=== PATIENT | male | born 1975 | race Caucasian/White ===

== ENCOUNTER → 2019-02-19 11:41 | Outpatient (CLI) | payer BC, SELFPAY ==
--- NOTE | 2019-02-19 11:45 | DI.RAD.S_ITS ---
PROCEDURE: XR SHOULDER RT MIN 2V INDICATIONS: Right should pain, decreased ROM TECHNIQUE: 3 views of the shoulder were acquired. COMPARISON: None. FINDINGS: Bones: No fractures or dislocations. No suspicious bony lesions. Visualized ribs appear intact. Mild degenerative changes of the acromioclavicular joint are present. Soft tissues: A homogeneous calcification is overlying the posterior aspect of the humeral head along the greater tuberosity. IMPRESSION: 1. No acute osseous abnormality of the right shoulder. 2. Calcific tendinitis of the right shoulder. Dictated by: Mitchell Graham M.D. on 02/19/2019 at 11:46 Approved by: Mitchell Graham M.D. on 02/19/2019 at 11:46
== END ==
PROVIDERS: PCP Family Medicine; Visit Provider Nurse Practitioner
DX: M25.511 Pain in right shoulder (principal); M75.31 Calcific tendinitis of right shoulder
CPT/HCPCS: 73030

== ENCOUNTER 2019-02-20 21:50 | Emergency (ER) | payer BC, SELFPAY ==
[2019-02-20 22:11] VITALS: BP 143/79; PULSE 89; RESP 20; TEMP 37.3; O2SAT 99
--- NOTE | 2019-02-20 22:49 | ED.GENADULT ---
HPI - General Adult General Chief complaint: Extremity Injury, Upper Stated complaint: right shoulder/arm pain Time Seen by Provider: 02/20/19 22:22 Source: patient Mode of arrival: Ambulatory Limitations: no limitations History of Present Illness HPI narrative: Patient is a 44-year-old male who was recently diagnosed with calcific tendinitis in his right shoulder. Was started on Flexeril. He states that he has tried to follow up in states that his physical therapy appointment is scheduled for another several weeks. He states that he is ?going back down on the road? and returns this evening because he has continued pain in his shoulder. Related Data Previous Rx's Medication Instructions Recorded cyclobenzaprine 10 mg tablet 10 mg PO TID PRN #14 tab 02/19/19 prednisone 40 mg PO DAILY 4 Days #8 tab 02/20/19 Allergies Allergy/AdvReac Type Severity Reaction Status Date / Time No Known Allergies Allergy Uncoded 02/19/19 11:09 Review of Systems Constitutional Constitutional: Denies fever(s) Musculoskeletal Musculoskeletal: Denies tingling Comments: Right shoulder pain Integumentary/Breasts Skin/Breast: Denies rash Neurologic Neurologic: Denies tingling and Denies paresthesias Hematologic/Lymphatic Hematologic/Lymphatic: Denies easy bleeding and Denies easy bruising PFSH Medical History Tendonitis (Inactive) Family History Mother Age: 62 Brain tumor Social History Smoking Status: Never smoker Social History Smoking Status: Never smoker Exam Initial Vital Signs Initial Vital Signs: Vital Signs Temperature 99.1 F 02/20/19 22:11 Pulse Rate 89 02/20/19 22:11 Respiratory Rate 20 02/20/19 22:11 Blood Pressure 143/79 H 02/20/19 22:11 Pulse Oximetry 99 02/20/19 22:11 Const General: cooperative, healthy appearing and comfortable Resp Effort & Inspection: normal respiratory effort Cardio Pulses: radial pulses present on the right Skin Lesions: no lesions Rashes: no rashes Extrem Other: Tenderness to palpation laterally and anteriorly to the right shoulder. Does have full range of motion however has pain with forward flexion Psych Appearance: grossly normal and well kempt Course Orders Ordered: Discontinued Medications Prednisone (Deltasone) 40 mg PO NOW ONE Stop: 02/20/19 22:51 Last Admin: 02/20/19 23:01 Dose: 40 mg Documented by: MERCEDEZ Vital Signs Vital signs: Vital Signs - 8 hr 02/20/19 22:11 Temperature 99.1 F Pulse Rate 89 Respiratory Rate 20 Blood Pressure 143/79 H Pulse Oximetry 99 Medical Decision Making MDM Narrative Medical decision making narrative: No indication for repeat x-rays today. He is neurovascularly intact. Informed him that if he is not receiving any improvement with Flexeril should just stop taking this medication. Low suspicion this is a muscle spasm. Will send him home with a short course of steroids. He is going to continue to take the anti-inflammatories. He is going to continue to follow up with physical therapy. He was given return precautions. He expressed understanding and agreement with plan. Discharge Plan Departure Patient Disposition: Home Clinical Impression: Tendonitis Discharge Date/Time: 02/20/19 23:04 Instructions: DI for Tendinitis Activity Restrictions/Additional Instructions: You can stop the cyclobenzaprine/Flexeril. I do recommend you start taking a anti-inflammatories such as Motrin and/or Naprosyn on a daily basis. It is important that you follow-up with physical therapy. Contact your primary provider for follow-up. Return to the emergency department for any new or worsening symptoms Prescriptions: New prednisone 20 mg tablet 40 mg PO DAILY 4 Days Qty: 8 RF: 0 No Action cyclobenzaprine 10 mg tablet 10 mg PO TID PRN (Reason: muscle spasm) Qty: 14 RF: 0 Referrals: Tabby Guerrier DO [Primary Care Provider] -
[2019-02-20] MEDS: predniSONE 20 MG TABLET 40 MG PO (23:01)
== END 2019-02-20 23:04 | disposition home or self-care (01) ==
PROVIDERS: Emergency Provider Emergency Medicine; PCP Family Medicine
DX: M75.81 Other shoulder lesions, right shoulder (principal)
CPT/HCPCS: 99282; 99283

== ENCOUNTER → 2020-02-17 09:08 | Outpatient (CLI) | payer OTHER, MEDICAID, SELFPAY ==
[2020-02-17 09:39] LABS: Add Manual Diff / Slide Review NO; Basophils Absolute Auto 100 /uL (0-100); Eosinophils Absolute Auto 300 /uL (0-450); Eosinophils Percent Auto 5.7 % (2-4); Hematocrit 46.5 % (41-53); Hemoglobin 15.9 g/dL (13.5-17.5); Lymphocytes Absolute Auto 1400 /uL (1100-4500); Lymphocytes Percent Auto 24.2 % (25-40); Mean Corpuscular HGB Conc 34.2 % (30-36); Mean Corpuscular Hemoglobin 29.6 PG (26-34); Mean Corpuscular Volume 86.6 fL (80-100); Monocytes Absolute Auto 400 /uL (0-900); Monocytes Percent Auto 7.2 % (3-14); Neutrophils Absolute Auto 3500 /uL (1500-7000); Neutrophils Percent Auto 61.9 % (50-75); Platelet Count 199 X10^3/uL (150-400); Red Blood Cell Count 5.37 X10^6/uL (4.5-5.9); Red Cell Distribution Width 12.6 % (11.6-14.8); White Blood Cell Count 5.6 X10^3/uL (4.5-11.0)
[2020-02-17 10:04] LABS: BUN Creatinine Ratio 13.7 (6-22); Blood Urea Nitrogen 18 mg/dL (9-20); Calcium 9.5 mg/dL (8.4-10.2); Carbon Dioxide 32 mmol/L (22-32); Chloride 103 mmol/L (98-107); Cholesterol 211 mg/dL (140-199); Estimated Glomerular Filt Rate 59.4 mL/min (>60); Glucose 99 mg/dL (70-100); HDL Cholesterol 37 mg/dL (40-60); HEMOLYSIS < 15 (0-50); LDL Cholesterol Calculated 130 mg/dL (<100); Potassium 4.6 mmol/L (3.4-5.1); Sodium 138 mmol/L (137-145); Triglycerides 221 mg/dL (35-150)
== END ==
PROVIDERS: PCP Family Medicine; Referring Provider Family Medicine; Visit Provider Family Medicine
DX: Z00.00 Encounter for general adult medical examination without abnormal findings (principal); Z68.29 Body mass index [BMI] 29.0-29.9, adult
CPT/HCPCS: 36415; 80048; 80061; 85025

== ENCOUNTER → 2020-04-23 13:13 | Outpatient (CLI) | payer OTHER, MEDICAID, SELFPAY ==
--- NOTE | 2020-04-23 13:16 | DI.RAD.S_ITS ---
PROCEDURE: FL BARIUM SWALLOW W SPEECH INDICATIONS: Dysphagia, pharyngeal phase COMPARISON: None. TECHNIQUE: Examination was conducted in conjunction with speech pathology per standard protocol. In the lateral projection, filming was performed of the patient swallowing. AP projection filming may also be performed with patient swallowing. COMPARISON: FINDINGS: Function: The oral preparatory phase appears normal, with proper containment. The subsequent oral propulsive phase, pharyngeal phase, and esophageal phase of swallowing also appear normal with all proffered substances. No laryngotracheal penetration or aspiration. No pathologic vallecular pooling. Morphology: No cricopharyngeal bar is identified. No cervical esophageal webs. No Zenker's diverticulum. No strictures. IMPRESSION: Negative examination as above. Dictated by: Javier Dc M.D. on 04/23/2020 at 14:27 Approved by: Javier Dc M.D. on 04/23/2020 at 14:28
--- NOTE | 2020-04-24 15:13 | ST.SWALLOW ---
Visit Care Team Role Provider Type Chaim Florez DO Primary Care Provider Physician Specialty: Family Practice Address: [address] [place] [address], [id number] Email: Brayan Brown MD Attending Provider Physician Referring Provider Specialty: Ear, Nose, Throat Address: [address] [place] [address], [id number] Email: [email or web address] Modified Barium Swallow Study ZOO DIRECTOR Modified Barium Swallow Study Start: 04/23/20 17:40 Freq: Status: Active Protocol: Document 04/23/20 17:40 MARYCARMEN (Rec: 04/23/20 17:41 MARYCARMEN [id number]) Modified Barium Swallow Study Total Time Visit Start Time 13:30 Visit Stop Time 13:55 Total Visit Minutes [address] Brown Reason for Referral Pharyngeal Dysphagia Setting Setting Outpatient Care Patient Information Identification Type Name,ID Card Patient History The pt is a 45-yr-old male who complains of intermittent sticking sensation with solids over many years, since ~19 yrs old. The pt cannot identify trigger foods. Sometimes he is able to resolve it with added liquid wash or by turning his head in either direction, and other times he regurgitates to remove it. He denies concern of airway compromise and has no difficulties with liquids. He said he has never been able to swallow pills whole and thankfully has few pills he has needed to take. He opts for liquid medications or crushes or chews pills in order to swallow them. No injury, illness or trauma can be identified as etiology or otherwise contributing factors. The pt requested ENT evaluation to make sure there was nothing wrong. Dr. Brown performed laryngoscopy with findings of no evidence of morbid disease although mild erythema of the vocal cords is nonspecific, possible untreated reflux, etc. The pt was referred for MBS for further evaluation of swallow. Subjective Observations The pt arrived on time and provided case history supplemental to medical records. Note: Video recording not obtained. Observations made in real time and via still images. Patient Positioning Position View Lat-A/P Imaging Lateral View Textures Administered Trials Presented Thin Liquid via Spoon,Thin Liquid via Cup,Bingham Liquid via Spoon,Bingham Liquid via Cup,Honey Liquid via Spoon, Dysphagia Blenderized Textures ,Regular Textures Oral Phase Source: MBSIMP (TM) (C) Bolus Specific Scoring Grid Lip Closure No Impairment (WNL) Tongue Control During Bolus Hold No Impairment (WNL) Bolus Prep/Mastication No Impairment (WNL) Bolus Transport/Lingual Motion No Impairment (WNL) A/P Lingual Propulsion Delay Yes: With pill only. Pt unable to pass pill to pharynx. Oral Residue No Impairment (WNL) Nasal Regurgitation No Additional Oral Phase Observations Oral Peripheral Exam: Symmetrical features WNL of strength, coordination and ROM. Pt has natural dentition in excellent condition, one upper left molar missing. Outside of pt's inability to pass barium tablet from oral to pharyngeal cavities, which he anticipated he would not be able to do, oral swallow phase is WNL. Pharyngeal Phase Source: MBSIMP (TM) (C) Bolus Specific Scoring Grid Delayed Initiation of Pharyngeal Swallow No Soft Palate Elevation No Impairment (WNL) Tongue Base Strength/Range of Motion No Impairment (WNL) Residue Along the Tongue Base No Laryngeal Elevation No Impairment (WNL) Anterior Hyoid Movement No Impairment (WNL) Epiglottic Range of Motion No Impairment (WNL) Vallecular Residue No Laryngeal Vestibular Closure No Impairment (WNL) Pharyngeal Stripping Wave No Impairment (WNL) Posterior Pharyngeal Wall Residue No Upper Esophageal Sphincter Opening No Impairment (WNL) Residue in the Pyriform Sinuses No Esophageal Clearance Upright Position No Impairment (WNL) Pharyngoesophageal Backflow Observed No Additional Pharyngeal Phase Observations Pharyngeal swallow phase was observed to be WNL in this study. No abnormal pooling or residue was observed. The pt had no complaints of sticking sensation. The airway was well protected with no laryngeal penetration or tracheal aspiration. A/P View Textures Administered Trials Presented Bingham Liquid via Cup, Dysphagia Blenderized Textures ,Barium Tablet A/P View Observations Pharyngeal Contraction No Impairment (WNL) Esophageal Function No Impairment (WNL) Esophageal Clearance Upright Position No Impairment (WNL) Additional Observations As noted above, the pt was unable to swallow a 13 mm barium tablet and expelled it after several attempts of swallowing with thin liquid. Esophageal Observations Esophageal Function No abnormalities were observed during esophageal screening. Clinical Impressions Findings The pt presented with normal oral and pharyngeal swallow during this study in a quiet and structured environment. No obvious cause for his intermittent sticking sensation was found. Discussed findings with pt and suggested that behaviors such as being distracted or talking while eating are potential contributors. Strategies that the pt could try are to turn his head to one side (either right or left) or tucking his chin with swallow if symptoms recur to see if that assists in clearance. General aspiration risks and precautions were discussed. Patient Appropriate for Therapy No Recommendations Diet Liquids Order Thin Diet Order Regular Medication Recommendation Whole in Carrier,Crushed in Carrier Aspiration Precautions Recommended Precautions Upright at 90 Degrees,Small Bites/Sips Additional Precautions Right/Left head turn, chin tuck, effortful swallow if helpful episodically Treatment Plan Additional Recommended Referrals The pt stated he will be following up with ENT.
== END ==
PROVIDERS: PCP Family Medicine; Referring Provider Otolaryngology; Visit Provider Otolaryngology
DX: R13.13 Dysphagia, pharyngeal phase (principal)
CPT/HCPCS: 74230; 92611

== ENCOUNTER → 2020-08-23 09:08 | Outpatient (CLI) | payer OTHER, MEDICAID, SELFPAY ==
[2020-08-23 10:33] LABS: BUN Creatinine Ratio 13.3 (6-22); Blood Urea Nitrogen 17 mg/dL (9-20); Calcium 9.4 mg/dL (8.4-10.2); Carbon Dioxide 29 mmol/L (22-32); Chloride 105 mmol/L (98-107); Cholesterol 188 mg/dL (140-199); Estimated Glomerular Filt Rate > 60.0 mL/min (>60); Glucose 99 mg/dL (70-100); HDL Cholesterol 35 mg/dL (40-60); HEMOLYSIS < 15 (0-50); LDL Cholesterol Calculated 111 mg/dL (<100); Sodium 140 mmol/L (137-145); Triglycerides 210 mg/dL (35-150)
== END ==
PROVIDERS: PCP Family Medicine; Referring Provider Family Medicine; Visit Provider Family Medicine
DX: E78.2 Mixed hyperlipidemia (principal); N18.30 Chronic kidney disease, stage 3 unspecified; Z68.29 Body mass index [BMI] 29.0-29.9, adult
CPT/HCPCS: 36415; 80048; 80061

== ENCOUNTER 2021-03-02 21:59 | Emergency (ER) | payer OTHER, MEDICAID, SELFPAY ==
[2021-03-02 22:07] VITALS: BP 136/87; PULSE 87; RESP 14; TEMP 36.2; O2SAT 99; BMI 27.7
--- NOTE | 2021-03-02 22:11 | DI.RAD.S_ITS ---
PROCEDURE: XR CHEST 1V INDICATIONS: Chest pain TECHNIQUE: One view of the chest was acquired. COMPARISON: None. FINDINGS: Surgical changes and devices: None. Lungs and pleura: Lungs are clear. No pleural effusions or pneumothorax. Mediastinum: Mediastinal contours appear normal. Heart size is normal. Bones and chest wall: No suspicious bony lesions. Overlying soft tissues appear unremarkable. IMPRESSION: No acute cardiopulmonary process demonstrated radiographically. Dictated by: Nimesh Krishnamurthy M.D. on 03/02/2021 at 22:26 Approved by: Nimesh Krishnamurthy M.D. on 03/02/2021 at 22:26
[2021-03-02 22:32] LABS: Alanine Aminotransferase 28 IU/L (<50); Albumin 4.7 g/dL (3.5-5.0); Albumin Globulin Ratio 1.5 (1.0-2.8); Alkaline Phosphatase 55 U/L (38-126); Aspartate Aminotransferase 27 IU/L (17-59); Bilirubin Total 0.5 mg/dL (0.2-1.3); Blood Urea Nitrogen 18 mg/dL (9-20); Calcium 9.4 mg/dL (8.4-10.2); Carbon Dioxide 28 mmol/L (22-32); Chloride 103 mmol/L (98-107); Creatine Kinase 90 U/L (55-170); Estimated Glomerular Filt Rate > 60.0 mL/min (>60); Globulin 3.1 g/dL (1.7-4.1); Glucose 101 mg/dL (70-100); HEMOLYSIS 15 (0-50); Lipase 117 U/L (23-300); Potassium 3.5 mmol/L (3.4-5.1); Sodium 141 mmol/L (137-145); Total Protein 7.8 g/dL (6.3-8.2)
[2021-03-02 22:44] LABS: Troponin I < 0.012 ng/mL (0.01-0.034)
[2021-03-02 22:50] LABS: Add Manual Diff / Slide Review NO; Basophils Absolute Auto 0 /uL (0-100); Basophils Percent Auto 0.7 % (0-2); Eosinophils Absolute Auto 200 /uL (0-450); Eosinophils Percent Auto 3.8 % (2-4); Hematocrit 49.9 % (41-53); Hemoglobin 16.7 g/dL (13.5-17.5); Lymphocytes Absolute Auto 1600 /uL (1100-4500); Lymphocytes Percent Auto 24.8 % (25-40); Mean Corpuscular HGB Conc 33.5 % (30-36); Mean Corpuscular Hemoglobin 29.5 PG (26-34); Monocytes Absolute Auto 400 /uL (0-900); Neutrophils Absolute Auto 4000 /uL (1500-7000); Neutrophils Percent Auto 63.7 % (50-75); Platelet Count 219 X10^3/uL (150-400); Red Blood Cell Count 5.67 X10^6/uL (4.5-5.9); Red Cell Distribution Width 12.9 % (11.6-14.8); White Blood Cell Count 6.3 X10^3/uL (4.5-11.0)
[2021-03-02 22:52] VITALS: BP 136/78; PULSE 80; O2SAT 99
[2021-03-02 22:53] VITALS: BP 136/76; PULSE 83; RESP 16; O2SAT 99
--- NOTE | 2021-03-02 22:55 | ED.CHESTPAIN ---
HPI - Chest Pain General Chief Complaint: Chest Pain Stated Complaint: Chest pain-sharp, weird feeling Time Seen by Provider: 03/02/21 22:53 Source: patient Mode of arrival: Ambulatory Limitations: no limitations History of Present Illness HPI narrative: 46-year-old male nonsmoker with noncontributory medical history presents for evaluation of an odd feeling in his left chest that started tonight a few hours ago. He states that he was at rest and had eaten some seafood bit before his symptoms started which include some sharp pain in his left chest that radiated up to his shoulder a bit. He states this discomfort was made worse by palpation, deep breath in by moving his arm. He denies other symptoms such as dizziness, weakness or lightheadedness. He has had no nausea or vomiting. He denies any exertional component to these symptoms. He does state that he felt a bit flushed and tingly in his face. 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 In the big picture he is had some abnormal feelings over the past month and a half or so which seemed to start soon after going out on the road for his job. He admits to having a few days of heavy drinking in the beginning of January and soon thereafter developed some epigastric burning and frequent palpitations and feeling flushed for a few days in the aftermath. His symptoms largely calm down but he has had other episodes of feeling a bit ?weird? which he seems to think may be related to eating seafood. He denies any swelling was tongue or throat or difficulty in breathing just feeling flushed with palpitations. Related Data Home Medications Medication Instructions Recorded Confirmed No Known Home Medications 02/16/20 08/28/20 Allergies Allergy/AdvReac Type Severity Reaction Status Date / Time No Known Drug Allergies Allergy Verified 03/02/21 22:07 Review of Systems Review of Systems Narrative: GENERAL: See HPI HEENT: Denies sinus pain, ear pain, sore throat, difficulty swallowing, dizziness. RESPIRATORY: See HPI CARDIOVASCULAR:See HPI GASTROINTESTINAL: Denies nausea, vomiting, abdominal pain, diarrhea, constipation, melena. : Denies dysuria, frequency, incontinence, hematuria, urinary retention. MUSCULOSKELETAL: denies weakness, joint pain, or bony pain SKIN: Denies rash, skin lesions, or other NEUROLOGIC: Denies weakness, headache, numbness, change in speech, confusion, seizures, incoordination. PSYCHIATRIC: No concerning psychosocial issues. 12 point review of systems is negative except for those stated above Patient History Medical History BMI 29.0-29.9,adult CKD (chronic kidney disease) stage 3, GFR 30-59 ml/min Encounter for vasectomy Food sticks on swallowing Hyperlipidemia, mixed Physical exam, annual Tendonitis Surgical History Anesthesia H/O removal of cyst (~2012) Family History Mother Brain tumor Cancer Father Broken hip Grandfather Cancer Social History Smoking Status: Never smoker alcohol intake: former substance use type: does not use Smoking Status: Never smoker alcohol intake frequency: holidays/special occasions only Substance Use Type: does not use Exam Narrative Exam Narrative: GENERAL: [46] year old patient appears stated age. Well-developed patient, in mild distress. HEAD: Atraumatic. Normocephalic. EYES: Pupils equal round and reactive. Extraocular motions intact. No scleral icterus. No injection or drainage. ENT: Nose without bleeding, purulent drainage. Throat without erythema, tonsillar hypertrophy or exudate. Airway patent. NECK: Trachea midline. Non tender CARDIOVASCULAR: Regular rate and rhythm without murmurs, gallops, or rubs. Mild tenderness to palpation on left anterior chest is consistent with the discomfort that brought him in earlier RESPIRATORY: Clear to auscultation. Breath sounds equal bilaterally. No wheezes, rales, or rhonchi. GASTROINTESTINAL: Abdomen soft, non-tender, nondistended. EXTREMITIES: No edema or joint tenderness. BACK: Nontender without deformity or crepitance. No flank tenderness. NEURO: AOx3. SKIN: No rash or erythema of visible areas Initial Vital Signs Initial Vital Signs: Vital Signs Temperature 97.2 F L 03/02/21 22:07 Pulse Rate 87 03/02/21 22:07 Respiratory Rate 14 03/02/21 22:07 Blood Pressure 136/87 03/02/21 22:07 Pulse Oximetry 99 03/02/21 22:07 Scores PERC Score Age greater than or equal to 50 years: No Heart rate greater than or equal to 100 bpm: No Room Air O2 Sat less than 95%: No Unilateral leg swelling: No Recent trauma or surgery: No Hemoptysis: No Prior PE or DVT: No Hormone Use: No Total PERC Score: 0 Wells' Criteria for PE Clinical signs and symptoms of DVT: No PE is #1 Dx or equally likely: No Heart rate > 100: No Immobilization at least 3 days or surg in previous 4 weeks: No History of PE or DVT: No Hemoptysis: No Malignancy w/Treatment within 6 months or palliative: No Wells' PE Score total: 0 Course Orders Ordered: ED Orders 03/02/21 22:10 Complete Blood Count AUTO DIFF Stat Comprehensive Metabolic Panel Stat Lipase Stat Troponin & CK Cardiac Panel Stat 03/02/21 22:11 XR chest 1V Stat EKG-12 Lead Stat 03/03/21 01:17 Troponin I Stat Vital Signs Vital signs: Vital Signs - 8 hr 03/02/21 22:07 03/02/21 22:52 03/02/21 22:53 Temperature 97.2 F L Pulse Rate 87 80 83 Respiratory Rate 14 16 Blood Pressure 136/87 136/78 136/76 Pulse Oximetry 99 99 99 03/02/21 23:37 03/02/21 23:38 03/03/21 00:00 Temperature Pulse Rate 80 65 Respiratory Rate 12 Blood Pressure 142/67 H Pulse Oximetry 100 99 100 03/03/21 00:30 03/03/21 01:00 Temperature Pulse Rate 63 73 Respiratory Rate 14 15 Blood Pressure Pulse Oximetry 100 100 MDM - Chest Pain Lab Data Result diagrams: 03/02/21 22:10 03/02/21 22:10 Labs: Lab Results 03/02/21 03/02/21 03/03/21 Range/Units 22:10 22:10 01:17 WBC 6.3 (4.5-11.0) X10^3/uL RBC 5.67 (4.5-5.9) X10^6/uL Hgb 16.7 (13.5-17.5) g/dL Hct 49.9 (41-53) % MCV 88.0 (80-100) fL MCH 29.5 (26-34) PG MCHC 33.5 (30-36) % RDW 12.9 (11.6-14.8) % Plt Count 219 (150-400) X10^3/uL Neut % (Auto) 63.7 (50-75) % Lymph % (Auto) 24.8 L (25-40) % [place] % (Auto) 7.0 (3-14) % Eos % (Auto) 3.8 (2-4) % Baso % (Auto) 0.7 (0-2) % Neut # (Auto) 4000 (7500-4672) /uL Lymph # (Auto) 1600 (7657-5568) /uL [place] # (Auto) 400 (0-900) /uL Eos # (Auto) 200 (0-450) /uL Baso # (Auto) 0 (0-100) /uL Sodium 141 (137-145) mmol/L Potassium 3.5 (3.4-5.1) mmol/L Chloride 103 (98-107) mmol/L Carbon Dioxide 28 (22-32) mmol/L BUN 18 (9-20) mg/dL Creatinine 1.29 H (0.66-1.25) mg/dL Estimated GFR > 60.0 (>60) mL/min BUN/Creatinine Ratio 14.0 (6-22) Glucose 101 H (70-100) mg/dL Calcium 9.4 (8.4-10.2) mg/dL Total Bilirubin 0.5 (0.2-1.3) mg/dL AST 27 (17-59) IU/L ALT 28 (<50) IU/L Alkaline Phosphatase 55 (38-126) U/L Total Creatine Kinase 90 (55-170) U/L CK-MB (CK-2) TNP CK-MB (CK-2) Rel Index TNP Troponin I < 0.012 < 0.012 (0.01-0.034) ng/mL Total Protein 7.8 (6.3-8.2) g/dL Albumin 4.7 (3.5-5.0) g/dL Globulin 3.1 (1.7-4.1) g/dL Albumin/Globulin Ratio 1.5 (1.0-2.8) Lipase 117 (23-300) U/L Imaging Data Chest x-ray: Radiologist's Impression: [address] [address] XRay Report Signed Patient: Nick Farris MR#: [id number] : 1975 Acct:[id number] Age/Sex: 46 / M Date of Service: 03/02/21 Loc: ED Accession Number: [id number] ?? Procedure: XR chest 1V Ordering Provider: Vishal Walker D.O. PROCEDURE:? XR CHEST 1V ? INDICATIONS:? Chest pain ? TECHNIQUE:? One view of the chest was acquired.? ? COMPARISON:? None. ? FINDINGS:? ? Surgical changes and devices:? None.? ? Lungs and pleura:? Lungs are clear.? No pleural effusions or pneumothorax.? ? Mediastinum:? Mediastinal contours appear normal.? Heart size is normal.? ? Bones and chest wall:? No suspicious bony lesions.? Overlying soft tissues appear unremarkable.? ? IMPRESSION:? No acute cardiopulmonary process demonstrated radiographically. ? ? Dictated by: Nimesh Krishnamurthy M.D. on 03/02/2021 at 22:26 ? ? Approved by: Nimesh Krishnamurthy M.D. on 03/02/2021 at 22:26 ? MDM Narrative Medical decision making narrative: Patient with an atypical presentation of chest pain which is sharp and stabbing, reproducible with palpation deep breaths and motion. EKGs are nonischemic and troponins by 3 hours are unremarkable. There is no exertional component nor other red flag symptoms such as unexplained diaphoresis. Heart score is low and cardiac ischemia soft to be extremely unlikely. Pulmonary embolism considered given his extensive travel, however both Wells and PERC score are negative, no D-dimer indicated based on Agustin Adkins's PE Algorithm. Pneumonia considered, pneumothorax considered but both thought unlikely given lack of findings on x-ray. Given the temporal relationship to seafood there is some question about how this may relate but no indication or need of a specific intervention or therapy tonight. The episode he had in the beginning of January sounds concerning for holiday heart, we discussed this at length. Patient has an appointment with his PCP on Thursday, return precautions have been given and questions answered to his apparent satisfaction Discharge Plan Departure Patient Disposition: Home Clinical Impression: Atypical chest pain Instructions: DI for Atypical Chest Pain Activity Restrictions/Additional Instructions: *You have been diagnosed with [atypical chest pain. Your history, physical exam, labs and EKG are very reassuring. There is no evidence of heart attack, blood clot, or other diagnosis requiring a specific or immediate intervention *What to do: *Please continue to take your regular medications as directed. [ ] New medication prescriptions sent to your pharmacy: [ ] [ ] New medication written as a paper prescription [x ] No new medications given *Please follow up with your primary care provider in 2-3 days, call for an appointment. Let them know you were seen in the Emergency Department and that we ask that you be seen in follow up. We will electronically transmit a record of today's note if your PCP is in our system *If you do not have a primary care provider please contact the [facility] Resource line at [phone]. They will ask some questions about your medical history and help get you set up with a doctor in the community. *Return to Emergency Department if you should have any new, worsening or concerning symptoms, such as [fever greater than 101 F, shaking chills, worsening pain, persistent vomiting or other bothersome symptoms] Prescriptions: No Action No Known Home Medications RF: 0 Referrals: Chaim Florez DO [Primary Care Provider] -
[2021-03-02 23:37] VITALS: O2SAT 100
[2021-03-02 23:38] VITALS: BP 142/67; PULSE 80; O2SAT 99
[2021-03-03] VITALS: PULSE 65; RESP 12; O2SAT 100
[2021-03-03 00:30] VITALS: PULSE 63; RESP 14; O2SAT 100
[2021-03-03 01:00] VITALS: PULSE 73; RESP 15; O2SAT 100
[2021-03-03 01:47] LABS: Troponin I < 0.012 ng/mL (0.01-0.034)
== END 2021-03-03 02:00 | disposition home or self-care (01) ==
PROVIDERS: Emergency Provider Emergency Medicine; PCP Family Medicine
DX: R07.9 Chest pain, unspecified (principal)
CPT/HCPCS: 36415; 71045; 80053; 82550; 83690; 84484; 85025; 93005; 93010; 99284

== ENCOUNTER 2022-07-06 21:27 | Emergency (ER) | payer OTHER, MEDICAID, SELFPAY ==
[2022-07-06 23:42] VITALS: BP 149/95; PULSE 70; RESP 17; TEMP 36.6; O2SAT 98; BMI 29.9
--- NOTE | 2022-07-06 23:48 | DI.RAD.S_ITS ---
PROCEDURE: XR SHOULDER RT MIN 2V INDICATIONS: pain with movement for a week unknown injury TECHNIQUE: A total of 4 views of the shoulder were acquired. COMPARISON: [facility], CR, XR SHOULDER RT MIN 2V, 02/19/2019, 12:01. FINDINGS: Bones: No fractures or dislocations. No suspicious bony lesions. Visualized ribs appear intact. Soft tissues: No suspicious soft tissue calcifications. IMPRESSION: Source of pain is not seen. Dictated by: Don Story M.D. on 07/07/2022 at 0:17 Approved by: Don Story M.D. on 07/07/2022 at 0:17
--- NOTE | 2022-07-06 23:49 | DI.RAD.S_ITS ---
PROCEDURE: XR ELBOW RT MIN 3V INDICATIONS: pain with movement for a week unknown injury TECHNIQUE: 3 views of the elbow were acquired. COMPARISON: None. FINDINGS: Bones: No fractures or dislocations. No suspicious bony lesions. Soft tissues: No elbow joint effusion. No suspicious soft tissue calcifications. IMPRESSION: Source of pain is seen. Dictated by: Don Story M.D. on 07/07/2022 at 0:17 Approved by: Don Story M.D. on 07/07/2022 at 0:18
--- NOTE | 2022-07-07 03:00 | ED_ITS ---
HPI - Extremity Injury (Upper) General Chief Complaint: Extremity Injury, Upper Stated Complaint: right arm pain x7 days Time Seen by Provider: 07/07/22 02:49 Source: patient Mode of arrival: Ambulatory Limitations: no limitations History of Present Illness HPI narrative: 47-year-old male with complaint of right arm pain for the past week patient states he was at an event was caring a lot of awkward things and started having pain radiating down his arm from his shoulder to his elbow. He states it is worse when he rotates his head and extends it. Particularly when he rotates mode of the left.. Patient has occasionally had some sort of tingling sensation but not all the way down his arm. No numbness. He states pain is intermittent but persistent. 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 He was seen at walk-in clinic several days ago he has been taking ibuprofen 800 mg twice daily, prednisone for 3 days which he is completed and muscle relaxer which he states is a little bit helpful but still quite uncomfortable. Pain was increasing this evening so he presented for evaluation. He denies any daily medications. He denies any major surgeries. States no known drug allergies. Patient states no tobacco, occasional alcohol, no illicit. He has not appointment set up with Dr. Florez on this upcoming . Related Data Previous Rx's Medication Instructions Recorded baclofen 20 mg tablet 20 mg PO TID PRN muscle spasm 7 07/03/22 days #21 tabs gabapentin 300 mg capsule 300 mg PO TID #30 caps 07/07/22 tramadol 50 mg tablet 50 mg PO Q6H PRN pain #14 tabs 07/07/22 Allergies Allergy/AdvReac Type Severity Reaction Status Date / Time No Known Drug Allergies Allergy Verified 07/03/22 11:35 Review of Systems Review of Systems ROS Unobtainable: All systems reviewed & are unremarkable except as noted in HPI and below Patient History Medical History BMI 29.0-29.9,adult CKD (chronic kidney disease) stage 3, GFR 30-59 ml/min Encounter for vasectomy Food sticks on swallowing Hyperlipidemia, mixed Physical exam, annual Tendonitis Surgical History Anesthesia H/O removal of cyst (~2013) Family History Mother Brain tumor Cancer Father Broken hip Grandfather Cancer Social History Smoking Status: Never smoker alcohol intake: former substance use type: does not use Smoking Status: Never smoker alcohol intake frequency: holidays/special occasions only Substance Use Type: does not use Exam Narrative Exam Narrative: GEN: Patient is in mild distress. Patient is active active and playful on exam. Normal attentiveness, good eye contact. INFANTS: Patient is consolable has good intake or suck on examination, good muscle tone, flat anterior fontanelle which is not sunken, closed, bulging. HEENT: Head is atraumatic, conjunctivae and lids are normal, extraocular movements are intact, PERRL. ears are normal the tympanic membranes intact without erythema or bulging. Able to visualize both TMs. Nares are clear, pharynx is normal, moist mucous membranes. NEC K: Supple, no masses, positive Spurling's. No cervical vertebral tenderness. RESP: No respiratory distress, breath sounds are normal with equal air movement bilaterally. CVS: Heart is regular rate and rhythm, heart sounds normal with no murmur, strong peripheral pulses, normal capillary refill ABG/GI: Abdomen is nontender, soft, normal bowel sounds, no distention, no organomegaly EXT: Nontender, director marketing communications are equal bilaterally. 5/5 muscle strength upper extremities. 2/4 DTRs bilateral upper extremities. Sensation is touch bilaterally upper extremities. Patient has full range of motion. NEURO: Normal motor and sensory, cranial nerves are intact, neuro is at baseline SKIN: No lesions, no petechiae, normal skin that is warm and dry, normal color and without rash. Initial Vital Signs Initial Vital Signs: Vital Signs Temperature 98 F 07/06/22 23:42 Pulse Rate 70 07/06/22 23:42 Respiratory Rate 17 07/06/22 23:42 Blood Pressure 149/95 H 07/06/22 23:42 Pulse Oximetry 98 07/06/22 23:42 Oxygen Delivery Method 07/06/22 23:42 Course Orders Ordered: Discontinued Medications Ketorolac Tromethamine (Ketorolac 30 Mg/Ml Vial) 30 mg IM NOW ONE Stop: 07/07/22 04:08 Last Admin: 07/07/22 04:21 Dose: 30 mg Documented By: TANIA Vital Signs Vital signs: Vital Signs - 8 hr 07/07/22 04:21 Pulse Rate 88 Respiratory Rate 16 Pulse Oximetry 98 Oxygen Delivery Method Room Air MDM - Extremity Injury (Upper) MDM Narrative Medical decision making narrative: This is a 47-year-old male who presents with complaint of right upper extremity pain radiating down towards his elbow. Occasionally tingling. Worse with movement of his not can positive Spurling's. Patient appears to have cervical radiculopathy he is no red flag symptoms. He is follow-up actually set up this upcoming . He has been on 3 days of prednisone with minimal improvement. Plan to start gabapentin, continue ibuprofen will add a short course of narcotic pain medication for breakthrough pain and discussed return precautions. Discussed with patient he is already started some PT type exercises he is found online which I think is appropriate. He may need to follow up with PT or have further imaging or workup. Discharge Plan Departure Patient Disposition: Home Clinical Impression: Cervical radiculopathy Instructions: DI for Cervical Radiculopathy Activity Restrictions/Additional Instructions: Follow-up with your physician, Dr. Koehler on at your scheduled appointment . Your symptoms are consistent with a cervical radiculopathy they make recommend PT, they may get additional imaging or further workup. You can continue ibuprofen up to 800 mg every 8 hours as needed for pain. You can take Tylenol up to a 1000 mg every 6 hours with this medication. You may take gabapentin 1 tablet every 8 hours as needed. This medication can be titrated or increased talk to Dr. Florez You may take tramadol 1-2 tablets every 6 hours as needed. This medication can make you sleepy do not drive, perform hazardous activities or make any major decisions while taking it. This medication will make you constipated please take a stool softener once to twice daily until stools are soft and regular. Prescription sent to [facility] in [place] Please return for rapidly worsening symptoms, difficulty with tucking machine operator, weakness in your arm, loss of sensation, inability to lift or move her arm or other new or concerning changes. Prescriptions: New gabapentin 300 mg capsule 300 mg PO TID Qty: 30 0RF tramadol 50 mg tablet 50 mg PO Q6H PRN (Reason: pain) Qty: 14 0RF No Action baclofen 20 mg tablet 20 mg PO TID PRN (Reason: muscle spasm) 7 Days Qty: 21 0RF Referrals: Scott Florez DO [Primary Care Provider] - Stand Alone Forms: Patient Portal/API
[2022-07-07 04:21] VITALS: PULSE 88; RESP 16; O2SAT 98
[2022-07-07] MEDS: KETOROLAC 30 MG/ML VIAL IM (04:21)
== END 2022-07-07 04:22 | disposition home or self-care (01) ==
PROVIDERS: Emergency Provider Emergency Medicine; PCP Family Medicine
DX: M54.12 Radiculopathy, cervical region (principal)
CPT/HCPCS: 73030; 73080; 96372; 99283; J1885

== ENCOUNTER 2022-12-11 07:30 | Outpatient (RCR) | payer OTHER, MEDICAID, SELFPAY ==
--- NOTE | 2022-09-02 09:48 | PT.OIE ---
Current Diagnoses Torticollis (09/02/22) Radiculopathy, cervical region (09/02/22) Segmental and somatic dysfunction of head region (09/02/22) Segmental and somatic dysfunction of thoracic region (09/02/22) Abnormal posture (09/02/22) Weakness (09/02/22) Past Medical History (Last Updated 07/16/22 @ 11:33 by Scott Florez DO) BMI 29.0-29.9,adult Cervical somatic dysfunction CKD (chronic kidney disease) stage 3, GFR 30-59 ml/min Cranial somatic dysfunction Encounter for vasectomy Finger numbness Food sticks on swallowing Hyperlipidemia, mixed Neck stiffness Physical exam, annual Tendonitis Thoracic region somatic dysfunction Past Surgical History (Last Reviewed 07/07/22 @ 04:14 by Jolynn Zuniga DO) Anesthesia H/O removal of cyst (~2012) Visit Care Team Role Provider Type Scott Florez DO Attending Provider Physician Family Provider Primary Care Provider Referring Provider Specialty: [facility] Address: [address] [place] [address], [facility] Email: Physical Therapy Initial Evaluation PT-OP-A Visit Information Start: 08/25/22 10:48 Freq: Status: Active Protocol: Document 09/02/22 08:18 [facility] (Rec: 09/02/22 09:04 [facility] [id number]) Out-Patient Physical Therapy Visit Information Visit Information Visit Type Initial Evaluation Visit Start Time 08:19 Visit Stop Time 09:01 Total Visit Minutes 42 Visit Number 1 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 He woke up that thursday and his R arm hurt and he took ibupfrofen and it got worse wher he could barely drive home. It went all the way down his arm into his hand. He has seen Dr. Florez and massage therapy. Massage therapy helped. The weekend before had been bowling and felt it some there. 9 weeks prior he had just started to workout including push ups etc which was new to him. sitting seems to trigger it the most w/ resting arm. He had some exercises from Dr. Florez but doesn't notice if the exercises make any change. It is overall better. He does get muscle spasms a lot where his forehead and B eyelids and R triceps. He leaves in 3 weeks for a tour for 3 months. Gabapentin does help. He started weaning himself off gabepentin which he was doing fine until partway in vacation . 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 Its mostly resting and laying down. He has stopped workouts since. hx of cyst removal along R scap, a couple years ago had calcium build up of R arm and that was painful and had to wait for it to be reabsorbed (around 2018) Treatment Goals Patient/Caregiver Goals be able to drive and do all activities and rest w/o inc pain/tingling PT-OP-C Subjective Start: 08/25/22 10:48 Freq: Status: Active Protocol: Document 09/02/22 08:18 [facility] (Rec: 09/02/22 09:04 [facility] [id number]) Patient Questionnaires Quick Dash- Upper Extremity Quick Dash UE Score 15 OP-PT Pain Assessment Location R arm Pain Location Details R UT region & post lat shoulder arnd arm & forearm Intensity 3 Scale Used Numeric (0 - 10) Description Tingling Frequency Frequent Radiating Location tip of 2nd digit numb (3-4 used to be but better) Other Pain Aggravating Factors driving, resting Pain Alleviating Factors Medication Other Pain Alleviating Factors activity PT-OP-F Manual Assessment Start: 08/25/22 10:48 Freq: Status: Active Protocol: Document 09/02/22 08:18 [facility] (Rec: 09/02/22 09:04 [facility] [id number]) Manual Assessments Soft Tissue Assessment Soft Tissue Mobility Assessment R med scap border, R UT, LS, rhombooids, biceps, pec, scalenes, SCM Joint Mobility Assessment Joint Mobility Assessment R 1st rib elevated PT-OP-J Posture/Palpation/Skin Start: 08/25/22 10:48 Freq: Status: Active Protocol: Document 09/02/22 08:18 [facility] (Rec: 09/02/22 09:04 [facility] [id number]) Posture Evaluation Torey Postural Classification System Elbow Flexion Test 2 Comments Posture Comments R scap more fwd angled, R shoulder elevated PT-OP-K Range of Motion Start: 08/25/22 10:48 Freq: Status: Active Protocol: Document 09/02/22 08:18 [facility] (Rec: 09/02/22 09:04 [facility] [id number]) Cervical Spine Range of Motion Cervical Spine Active Degrees Flexion 54 Extension 55 Rotation Left 72 Rotation Right 68 Lateral Flexion Left 45 Lateral Flexion Right 26 Comments WNL BuE ROM -mild pain w/flex; pain into arm w/R SB PT-OP-L Special Tests Start: 08/25/22 10:48 Freq: Status: Active Protocol: Document 09/02/22 08:18 [facility] (Rec: 09/02/22 09:04 [facility] [id number]) Special Tests Cervical Spine Special Tests Traction Test Results relief Vertebral Artery Test Results neg Spurling's Test Test Results neg Neural Special Tests- Upper Body Median Nerve Tension Test Results R positive Radial Nerve Tension Test Results R positive Ulnar Nerve Tension Test Results neg PT-OP-M Strength Start: 08/25/22 10:48 Freq: Status: Active Protocol: Document 09/02/22 08:18 [facility] (Rec: 09/02/22 09:04 [facility] [id number]) Shoulder Strength Shoulder Manual Muscle Testing Right Flexion 5 Normal Extension 5 Normal Abduction (C5) 5 Normal External Rotation 5 Normal Internal Rotation 5 Normal Left Flexion 5 Normal Extension 5 Normal Abduction (C5) 5 Normal External Rotation 5 Normal Internal Rotation 5 Normal Elbow/Forearm Strength Elbow and Forearm Manual Muscle Testing Right Flexion (C6) 4+ Good+ Extension (C7) 3+ Fair+ Pronation 5 Normal Supination 5 Normal Left Flexion (C6) 5 Normal Extension (C7) 5 Normal Pronation 5 Normal Supination 5 Normal Wrist Strength Wrist Manual Muscle Testing Right Flexion (C7) 5 Normal Extension (C6) 5 Normal Left Flexion (C7) 5 Normal Extension (C6) 5 Normal Hand Distillery Worker General/Pinch Strength Hand Strength Right Distillery Worker General (lbs) 120 Comments 132, 118, 110 Left Distillery Worker General (lbs) 128 Comments 142, 123, 120 PT-OP-Q Treatments Start: 08/25/22 10:48 Freq: Status: Active Protocol: Document 09/02/22 08:18 [facility] (Rec: 09/02/22 09:04 [facility] [id number]) Self-Care/Home Management Treatment Education Other Education edu on exercise handout to startx4 min PT-OP-T Assessment and Plan Start: 08/25/22 10:48 Freq: Status: Active Protocol: Document 09/02/22 08:18 [facility] (Rec: 09/02/22 09:04 [facility] [id number]) Physical Therapy Assessment Rehab Potential Rehabilitation Potential Good Evaluation Complexity Number of Personal Factors/Comorbidities 3 or More Number of Body Systems Impaired 4 or More Clinical Presentation at Evaluation Evolving Impairments Impairments Activity Tolerance,Functional Activities,Functional Mobility ,Pain,Posture,ROM,Soft Tissue Mobility,Strength Other Concerns Barriers to Rehabilitation pt has limited visits w/PT in a year and will be gone for 3 months in 3 weeks d/t work. 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 LTG Duration 11/25/22 Assessment Summary Assessment Pt presents w/RUE weakness and pain/tingling that has been ongoing w/some imrpovement in the past 2 months. 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 His presentation si consistant w/ C7 parastesia and median & radial n tension w/elevation of 1st rib and impaired posture which is likely creating his nerve irritation. Pt would bneefit from skilled PT to address these issues and improve his function including ability to drive and rest arm at his side w/o inc pain/tingling. Physical Therapy Plan Frequency and Duration Frequency of Treatment 2x/wk 4wk; 1xwk/8wk Duration of treatment (weeks) 12 Plan of Care Start Date 09/02/22 Plan of Care End Date 11/25/22 Therapeutic Interventions Therapeutic Interventions Coordination Training,Home Exercise Program,Joint Mobilizations,Manual Therapy, Neuromuscular Re-education, Patient/Caregiver Education, Self-Care/Home Management,Soft Tissue Mobilization,Taping, Therapeutic Activities, Therapeutic Exercises Modalities Cold Pack/Ice Massage,Electric Stimulation,Hot Packs, Infrared Therapy,Iontophoresis ,Traction- Mechanical, Ultrasound Next Visit Focus/Plan Next Note Type Treatment Note Next Visit Plan review exercises; add wall posture & triceps strength along w/median and radial n glides, axial elongation; Upper tspine mobs and ribs 1-3 caudal and ap/PA mobs; sternal mobs, AC mobs, soft tissue along median & radial n path
--- NOTE | 2022-09-02 09:48 | PT.OPPOC ---
Physical, Occupational & Speech Therapy At [facility] Current Diagnoses Torticollis (09/02/22) Radiculopathy, cervical region (09/02/22) Segmental and somatic dysfunction of head region (09/02/22) Segmental and somatic dysfunction of thoracic region (09/02/22) Abnormal posture (09/02/22) Weakness (09/02/22) Visit Care Team Role Provider Type Scott Florez DO Attending Provider Physician Family Provider Primary Care Provider Referring Provider Specialty: Family Practice Address: [address] [place] [address], [facility] Email: Plan Of Care PT-OP-T Assessment and Plan Start: 08/25/22 10:48 Freq: Status: Active Protocol: Document 09/02/22 08:18 [facility] (Rec: 09/02/22 09:04 [facility] [id number]) Physical Therapy Assessment Rehab Potential Rehabilitation Potential Good Evaluation Complexity Number of Personal Factors/Comorbidities 3 or More Number of Body Systems Impaired 4 or More Clinical Presentation at Evaluation Evolving Impairments Impairments Activity Tolerance,Functional Activities,Functional Mobility ,Pain,Posture,ROM,Soft Tissue Mobility,Strength Other Concerns Barriers to Rehabilitation pt has limited visits w/PT in a year and will be gone for 3 months in 3 weeks d/t work. 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 LTG Duration 11/25/22 Assessment Summary Assessment Pt presents w/RUE weakness and pain/tingling that has been ongoing w/some imrpovement in the past 2 months. 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 His presentation si consistant w/ C7 parastesia and median & radial n tension w/elevation of 1st rib and impaired posture which is likely creating his nerve irritation. Pt would bneefit from skilled PT to address these issues and improve his function including ability to drive and rest arm at his side w/o inc pain/tingling. Physical Therapy Plan Frequency and Duration Frequency of Treatment 2x/wk 4wk; 1xwk/8wk Duration of treatment (weeks) 12 Plan of Care Start Date 09/02/22 Plan of Care End Date 11/25/22 Therapeutic Interventions Therapeutic Interventions Coordination Training,Home Exercise Program,Joint Mobilizations,Manual Therapy, Neuromuscular Re-education, Patient/Caregiver Education, Self-Care/Home Management,Soft Tissue Mobilization,Taping, Therapeutic Activities, Therapeutic Exercises Modalities Cold Pack/Ice Massage,Electric Stimulation,Hot Packs, Infrared Therapy,Iontophoresis ,Traction- Mechanical, Ultrasound Next Visit Focus/Plan Next Note Type Treatment Note Next Visit Plan review exercises; add wall posture & triceps strength along w/median and radial n glides, axial elongation; Upper tspine mobs and ribs 1-3 caudal and ap/PA mobs; sternal mobs, AC mobs, soft tissue along median & radial n path Plan of Care Dates Plan of Care Start Date 09/02/22 Plan of Care End Date 11/25/22 Electronically Signed by: Gala Brown, PT 09/02/22 0948 If you are in agreement with this Plan of Care, please return a signed and dated copy. I have reviewed this Plan of Care and certify that the skilled therapy services above are required to meet the patient?s needs. Physician Signature Date Printed Name and Credentials Clinical Instructor Signature Printed Name and Credentials
--- NOTE | 2022-09-04 08:15 | PT.OTN ---
Current Diagnoses Torticollis (09/04/22) Radiculopathy, cervical region (09/04/22) Segmental and somatic dysfunction of head region (09/04/22) Segmental and somatic dysfunction of thoracic region (09/04/22) Abnormal posture (09/04/22) Weakness (09/04/22) Physical Therapy Treatment Note PT-OP-A Visit Information Start: 08/25/22 10:48 Freq: Status: Active Protocol: Document 09/04/22 07:24 [facility] (Rec: 09/04/22 08:15 [facility] [id number]) Out-Patient Physical Therapy Visit Information Visit Information Visit Type Treatment Note Visit Start Time 07:30 Visit Stop Time 08:07 Total Visit Minutes 37 Visit Number 2 Number of DRUM STOCK CLERK Visits 0 PT-OP-B Current Condition Start: 08/25/22 10:48 Freq: Status: Active Protocol: Document 09/02/22 08:18 [facility] (Rec: 09/02/22 09:04 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 He woke up that thursday and his R arm hurt and he took ibupfrofen and it got worse wher he could barely drive home. It went all the way down his arm into his hand. He has seen Dr. Florez and massage therapy. Massage therapy helped. The weekend before had been bowling and felt it some there. 9 weeks prior he had just started to workout including push ups etc which was new to him. sitting seems to trigger it the most w/ resting arm. He had some exercises from Dr. Florez but doesn't notice if the exercises make any change. It is overall better. He does get muscle spasms a lot where his forehead and B eyelids and R triceps. He leaves in 3 weeks for a tour for 3 months. Gabapentin does help. He started weaning himself off gabepentin which he was doing fine until partway in vacation . 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 Its mostly resting and laying down. He has stopped workouts since. hx of cyst removal along R scap, a couple years ago had calcium build up of R arm and that was painful and had to wait for it to be reabsorbed (around 2018) Treatment Goals Patient/Caregiver Goals be able to drive and do all activities and rest w/o inc pain/tingling PT-OP-C Subjective Start: 08/25/22 10:48 Freq: Status: Active Protocol: Document 09/04/22 07:24 [facility] (Rec: 09/04/22 08:15 [facility] [id number]) OP-PT Subjective Patient Comments Patient Comments pt reports he mowed a 1/2 acre yesterday so is a little stiff PT-OP-F Manual Assessment Start: 08/25/22 10:48 Freq: Status: Active Protocol: Document 09/02/22 08:18 [facility] (Rec: 09/02/22 09:04 [facility] [id number]) Manual Assessments Soft Tissue Assessment Soft Tissue Mobility Assessment R med scap border, R UT, LS, rhombooids, biceps, pec, scalenes, SCM Joint Mobility Assessment Joint Mobility Assessment R 1st rib elevated PT-OP-J Posture/Palpation/Skin Start: 08/25/22 10:48 Freq: Status: Active Protocol: Document 09/02/22 08:18 [facility] (Rec: 09/02/22 09:04 [facility] [id number]) Posture Evaluation Torey Postural Classification System Elbow Flexion Test 2 Comments Posture Comments R scap more fwd angled, R shoulder elevated PT-OP-K Range of Motion Start: 08/25/22 10:48 Freq: Status: Active Protocol: Document 09/02/22 08:18 [facility] (Rec: 09/02/22 09:04 [facility] [id number]) Cervical Spine Range of Motion Cervical Spine Active Degrees Flexion 54 Extension 55 Rotation Left 72 Rotation Right 68 Lateral Flexion Left 45 Lateral Flexion Right 26 Comments WNL BuE ROM -mild pain w/flex; pain into arm w/R SB PT-OP-L Special Tests Start: 08/25/22 10:48 Freq: Status: Active Protocol: Document 09/02/22 08:18 [facility] (Rec: 09/02/22 09:04 [facility] [id number]) Special Tests Cervical Spine Special Tests Traction Test Results relief Vertebral Artery Test Results neg Spurling's Test Test Results neg Neural Special Tests- Upper Body Median Nerve Tension Test Results R positive Radial Nerve Tension Test Results R positive Ulnar Nerve Tension Test Results neg PT-OP-M Strength Start: 08/25/22 10:48 Freq: Status: Active Protocol: Document 09/02/22 08:18 [facility] (Rec: 09/02/22 09:04 [facility] [id number]) Shoulder Strength Shoulder Manual Muscle Testing Right Flexion 5 Normal Extension 5 Normal Abduction (C5) 5 Normal External Rotation 5 Normal Internal Rotation 5 Normal Left Flexion 5 Normal Extension 5 Normal Abduction (C5) 5 Normal External Rotation 5 Normal Internal Rotation 5 Normal Elbow/Forearm Strength Elbow and Forearm Manual Muscle Testing Right Flexion (C6) 4+ Good+ Extension (C7) 3+ Fair+ Pronation 5 Normal Supination 5 Normal Left Flexion (C6) 5 Normal Extension (C7) 5 Normal Pronation 5 Normal Supination 5 Normal Wrist Strength Wrist Manual Muscle Testing Right Flexion (C7) 5 Normal Extension (C6) 5 Normal Left Flexion (C7) 5 Normal Extension (C6) 5 Normal Hand Agricultural Technician/Pinch Strength Hand Strength Right Agricultural Technician (lbs) 120 Comments 132, 118, 110 Left Agricultural Technician (lbs) 128 Comments 142, 123, 120 PT-OP-Q Treatments Start: 08/25/22 10:48 Freq: Status: Active Protocol: Document 09/04/22 07:24 [facility] (Rec: 09/04/22 08:15 [facility] [id number]) Therapeutic Exercises Standing Exercises axial elongation Side bilateral Equipment Used orange tband Reps/Minutes 3 sec x10 ext Standing Exercise Name tricep ext Side bilateral Equipment Used [place] band Reps/Minutes 15 Comments cues for scap position wall posture Standing Exercise Name wall roll up Side bilateral Reps/Minutes 10x n glides Standing Exercise Name 1. radial 2. median Side right Reps/Minutes 8 ea Manual Therapy Treatment Soft Tissue Mobilization med n path Body Location R along cervical spine, scalenes, pec Mobilization Type Rolling,Sustained Pressure Intensity/Depth Moderate Body Position Supine Comments w/medin n glide Joint Mobilizations sternum Comments AP R FM thoracic Comments PA 1-3 FM transverse L 1-3 FM PT-OP-T Assessment and Plan Start: 08/25/22 10:48 Freq: Status: Active Protocol: Document 09/04/22 07:24 [facility] (Rec: 09/04/22 08:15 [facility] [id number]) Physical Therapy Assessment Goals activities Prison Goal (LTG) Pt will be able to drive w/o pain LTG Duration 711 strength Short Term Goal (STG) Pt will be indep w/HEp STG Duration 10/25 Prison Goal (LTG) Pt will have full triceps strength and R data solutions architect strength that is greater than L as R is his dominant hand in order to allow pt to carry and do all things required of his job w/o inc pain LTG Duration 11/25/22 pain Short Term Goal (STG) Pt will be able to lift and carry as needed w/o inc pain later STG Duration 10/16 Senior Java Web Application Developer Goal (LTG) Pt will be able to rest arm w/ o inc pain. LTG Duration 11/25/22 Assessment Summary Assessment Pt hadimpoved R rot cervically and R median n glide after manual treatment w/gettign into further abd before symptoms. He did well with exercises and had no difficulty w/them or c/o pain Physical Therapy Plan Frequency and Duration Frequency of Treatment 2x/wk 4wk; 1xwk/8wk Duration of treatment (weeks) 12 Plan of Care Start Date 09/02/22 Plan of Care End Date 11/25/22 Next Visit Focus/Plan Next Note Type Treatment Note Next Visit Plan short visits d/t insurance restrictions review exercises(wall posture & triceps strength along w/ median and radial n glides, axial elongation); Upper tspine mobs and ribs 1-3 caudal and ap/PA mobs; sternal mobs, AC mobs, soft tissue along median & radial n path
--- NOTE | 2022-09-08 17:46 | PT.OTN ---
Current Diagnoses Torticollis (09/08/22) Radiculopathy, cervical region (09/08/22) Segmental and somatic dysfunction of head region (09/08/22) Segmental and somatic dysfunction of thoracic region (09/08/22) Abnormal posture (09/08/22) Weakness (09/08/22) Physical Therapy Treatment Note PT-OP-A Visit Information Start: 08/25/22 10:48 Freq: Status: Active Protocol: Document 09/08/22 16:06 [facility] (Rec: 09/08/22 16:51 [facility] [id number]) Out-Patient Physical Therapy Visit Information Visit Information Visit Type Treatment Note Visit Start Time 16:07 Visit Stop Time 16:44 Total Visit Minutes 37 Visit Number 3 Number of MANAGER TREASURY Visits 0 PT-OP-B Current Condition Start: 08/25/22 10:48 Freq: Status: Active Protocol: Document 09/02/22 08:18 [facility] (Rec: 09/02/22 09:04 [facility] [id number]) Current Condition History of Current Condition Onset Date 2 months ago Current Complaints R arm pain History of Current Condition 2 months ago, 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 He woke up that thursday and his R arm hurt and he took ibupfrofen and it got worse wher he could barely drive home. It went all the way down his arm into his hand. He has seen Dr. Florez and massage therapy. Massage therapy helped. The weekend before had been bowling and felt it some there. 9 weeks prior he had just started to workout including push ups etc which was new to him. sitting seems to trigger it the most w/ resting arm. He had some exercises from Dr. Florez but doesn't notice if the exercises make any change. It is overall better. He does get muscle spasms a lot where his forehead and B eyelids and R triceps. He leaves in 3 weeks for a tour for 3 months. Gabapentin does help. He started weaning himself off gabepentin which he was doing fine until partway in vacation . 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 Its mostly resting and laying down. He has stopped workouts since. hx of cyst removal along R scap, a couple years ago had calcium build up of R arm and that was painful and had to wait for it to be reabsorbed (around 2018) Treatment Goals Patient/Caregiver Goals be able to drive and do all activities and rest w/o inc pain/tingling PT-OP-C Subjective Start: 08/25/22 10:48 Freq: Status: Active Protocol: Document 09/08/22 16:06 [facility] (Rec: 09/08/22 16:51 [facility] [id number]) OP-PT Subjective Patient Comments Patient Comments Pt reports going to an art show this weekend and did ok but did less carrying. Reports felt looser after last session PT-OP-F Manual Assessment Start: 08/25/22 10:48 Freq: Status: Active Protocol: Document 09/02/22 08:18 [facility] (Rec: 09/02/22 09:04 [facility] [id number]) Manual Assessments Soft Tissue Assessment Soft Tissue Mobility Assessment R med scap border, R UT, LS, rhombooids, biceps, pec, scalenes, SCM Joint Mobility Assessment Joint Mobility Assessment R 1st rib elevated PT-OP-J Posture/Palpation/Skin Start: 08/25/22 10:48 Freq: Status: Active Protocol: Document 09/02/22 08:18 [facility] (Rec: 09/02/22 09:04 [facility] [id number]) Posture Evaluation Torey Postural Classification System Elbow Flexion Test 2 Comments Posture Comments R scap more fwd angled, R shoulder elevated PT-OP-K Range of Motion Start: 08/25/22 10:48 Freq: Status: Active Protocol: Document 09/02/22 08:18 [facility] (Rec: 09/02/22 09:04 [facility] [id number]) Cervical Spine Range of Motion Cervical Spine Active Degrees Flexion 54 Extension 55 Rotation Left 72 Rotation Right 68 Lateral Flexion Left 45 Lateral Flexion Right 26 Comments WNL BuE ROM -mild pain w/flex; pain into arm w/R SB PT-OP-L Special Tests Start: 08/25/22 10:48 Freq: Status: Active Protocol: Document 09/02/22 08:18 [facility] (Rec: 09/02/22 09:04 [facility] [id number]) Special Tests Cervical Spine Special Tests Traction Test Results relief Vertebral Artery Test Results neg Spurling's Test Test Results neg Neural Special Tests- Upper Body Median Nerve Tension Test Results R positive Radial Nerve Tension Test Results R positive Ulnar Nerve Tension Test Results neg PT-OP-M Strength Start: 08/25/22 10:48 Freq: Status: Active Protocol: Document 09/02/22 08:18 [facility] (Rec: 09/02/22 09:04 [facility] [id number]) Shoulder Strength Shoulder Manual Muscle Testing Right Flexion 5 Normal Extension 5 Normal Abduction (C5) 5 Normal External Rotation 5 Normal Internal Rotation 5 Normal Left Flexion 5 Normal Extension 5 Normal Abduction (C5) 5 Normal External Rotation 5 Normal Internal Rotation 5 Normal Elbow/Forearm Strength Elbow and Forearm Manual Muscle Testing Right Flexion (C6) 4+ Good+ Extension (C7) 3+ Fair+ Pronation 5 Normal Supination 5 Normal Left Flexion (C6) 5 Normal Extension (C7) 5 Normal Pronation 5 Normal Supination 5 Normal Wrist Strength Wrist Manual Muscle Testing Right Flexion (C7) 5 Normal Extension (C6) 5 Normal Left Flexion (C7) 5 Normal Extension (C6) 5 Normal Hand Energy Engineer/Pinch Strength Hand Strength Right Energy Engineer (lbs) 120 Comments 132, 118, 110 Left Energy Engineer (lbs) 128 Comments 142, 123, 120 PT-OP-Q Treatments Start: 08/25/22 10:48 Freq: Status: Active Protocol: Document 09/08/22 16:06 [facility] (Rec: 09/08/22 16:51 [facility] [id number]) Therapeutic Exercises Standing Exercises axial elongation Side bilateral Equipment Used orange tband Reps/Minutes 3 sec x6 ext Standing Exercise Name tricep ext Side bilateral Equipment Used [place] band Reps/Minutes 15 Comments cues for scap position wall posture Standing Exercise Name wall roll up w/mod pivot prone Side bilateral Reps/Minutes 10x n glides Standing Exercise Name 1. radial 2. median Side right Reps/Minutes 5 ea Manual Therapy Treatment Soft Tissue Mobilization med n path Body Location R along entire path to hand Mobilization Type Rolling,Sustained Pressure Intensity/Depth Moderate Body Position Supine Comments w/medin n glide Joint Mobilizations ribs Joint R 1st caudal FM AC Joint R clavicle ant thoracic Comments PA 2-3 FM transverse L 2-3 FM PT-OP-T Assessment and Plan Start: 08/25/22 10:48 Freq: Status: Active Protocol: Document 09/08/22 16:06 [facility] (Rec: 09/08/22 16:51 [facility] [id number]) Physical Therapy Assessment Goals activities [place] Goal (LTG) Pt will be able to drive w/o pain LTG Duration 11/25 strength Short Term Goal (STG) Pt will be indep w/HEp STG Duration 10/25 Pipe Roller Goal (LTG) Pt will have full triceps strength and R generator switchboard operator strength that is greater than L as R is his dominant hand in order to allow pt to carry and do all things required of his job w/o inc pain LTG Duration 11/25/22 pain Short Term Goal (STG) Pt will be able to lift and carry as needed w/o inc pain later STG Duration 10/16 Pipe Roller Goal (LTG) Pt will be able to rest arm w/ o inc pain. LTG Duration 11/25/22 Assessment Summary Assessment Pt had improve med n glide beofre feeling tension from about 20 deg abd to about 100deg abd after manual. He reports general feeling much looser after therapy. He did wellw ith exercises but min cues still needed Physical Therapy Plan Next Visit Focus/Plan Next Note Type Treatment Note Next Visit Plan short visits d/t insurance restrictions quickreview exercises(wall posture & triceps strength along w/median and radial n glides, axial elongation); add open book, doorway pec stretch, other triceps strength (easy to do on road); Upper tspine mobs and ribs mobs, soft tissue along median & radial n path-focus pec
--- NOTE | 2022-09-12 08:15 | PT.OTN ---
Current Diagnoses Torticollis (09/12/22) Radiculopathy, cervical region (09/12/22) Segmental and somatic dysfunction of head region (09/12/22) Segmental and somatic dysfunction of thoracic region (09/12/22) Abnormal posture (09/12/22) Weakness (09/12/22) Physical Therapy Treatment Note PT-OP-A Visit Information Start: 08/25/22 10:48 Freq: Status: Active Protocol: Document 09/12/22 07:38 SP (Rec: 09/12/22 08:21 SP [id number]) Out-Patient Physical Therapy Visit Information Visit Information Visit Type Treatment Note Visit Note short visits d/t insurance restrictions Visit Start Time 07:38 Visit Stop Time 08:15 Total Visit Minutes 37 Visit Number 4 Number of INSURANCE POLICY CLERK Visits 1 PT-OP-B Current Condition Start: 08/25/22 10:48 Freq: Status: Active Protocol: Document 09/02/22 08:18 [facility] (Rec: 09/02/22 09:04 [facility] [id number]) Current Condition History of Current Condition Onset Date 2 months ago Current Complaints R arm pain History of Current Condition 2 months ago, 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 He woke up that thursday and his R arm hurt and he took ibupfrofen and it got worse wher he could barely drive home. It went all the way down his arm into his hand. He has seen Dr. Florez and massage therapy. Massage therapy helped. The weekend before had been bowling and felt it some there. 9 weeks prior he had just started to workout including push ups etc which was new to him. sitting seems to trigger it the most w/ resting arm. He had some exercises from Dr. Florez but doesn't notice if the exercises make any change. It is overall better. He does get muscle spasms a lot where his forehead and B eyelids and R triceps. He leaves in 3 weeks for a tour for 3 months. Gabapentin does help. He started weaning himself off gabepentin which he was doing fine until partway in vacation . 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 Its mostly resting and laying down. He has stopped workouts since. hx of cyst removal along R scap, a couple years ago had calcium build up of R arm and that was painful and had to wait for it to be reabsorbed (around 2018) Treatment Goals Patient/Caregiver Goals be able to drive and do all activities and rest w/o inc pain/tingling PT-OP-C Subjective Start: 08/25/22 10:48 Freq: Status: Active Protocol: Document 09/12/22 07:38 SP (Rec: 09/12/22 08:21 SP [id number]) OP-PT Subjective Patient Comments Patient Comments Pt reports see improvement of can feel L 2nd distal digit more, numbness not constant and tricep ext not as shaky. PT-OP-F Manual Assessment Start: 08/25/22 10:48 Freq: Status: Active Protocol: Document 09/02/22 08:18 [facility] (Rec: 09/02/22 09:04 [facility] [id number]) Manual Assessments Soft Tissue Assessment Soft Tissue Mobility Assessment R med scap border, R UT, LS, rhombooids, biceps, pec, scalenes, SCM Joint Mobility Assessment Joint Mobility Assessment R 1st rib elevated PT-OP-J Posture/Palpation/Skin Start: 08/25/22 10:48 Freq: Status: Active Protocol: Document 09/02/22 08:18 [facility] (Rec: 09/02/22 09:04 [facility] [id number]) Posture Evaluation Torey Postural Classification System Elbow Flexion Test 2 Comments Posture Comments R scap more fwd angled, R shoulder elevated PT-OP-K Range of Motion Start: 08/25/22 10:48 Freq: Status: Active Protocol: Document 09/02/22 08:18 [facility] (Rec: 09/02/22 09:04 [facility] [id number]) Cervical Spine Range of Motion Cervical Spine Active Degrees Flexion 54 Extension 55 Rotation Left 72 Rotation Right 68 Lateral Flexion Left 45 Lateral Flexion Right 26 Comments WNL BuE ROM -mild pain w/flex; pain into arm w/R SB PT-OP-L Special Tests Start: 08/25/22 10:48 Freq: Status: Active Protocol: Document 09/02/22 08:18 [facility] (Rec: 09/02/22 09:04 [facility] [id number]) Special Tests Cervical Spine Special Tests Traction Test Results relief Vertebral Artery Test Results neg Spurling's Test Test Results neg Neural Special Tests- Upper Body Median Nerve Tension Test Results R positive Radial Nerve Tension Test Results R positive Ulnar Nerve Tension Test Results neg PT-OP-M Strength Start: 08/25/22 10:48 Freq: Status: Active Protocol: Document 09/02/22 08:18 [facility] (Rec: 09/02/22 09:04 [facility] [id number]) Shoulder Strength Shoulder Manual Muscle Testing Right Flexion 5 Normal Extension 5 Normal Abduction (C5) 5 Normal External Rotation 5 Normal Internal Rotation 5 Normal Left Flexion 5 Normal Extension 5 Normal Abduction (C5) 5 Normal External Rotation 5 Normal Internal Rotation 5 Normal Elbow/Forearm Strength Elbow and Forearm Manual Muscle Testing Right Flexion (C6) 4+ Good+ Extension (C7) 3+ Fair+ Pronation 5 Normal Supination 5 Normal Left Flexion (C6) 5 Normal Extension (C7) 5 Normal Pronation 5 Normal Supination 5 Normal Wrist Strength Wrist Manual Muscle Testing Right Flexion (C7) 5 Normal Extension (C6) 5 Normal Left Flexion (C7) 5 Normal Extension (C6) 5 Normal Hand Insurance Sales Agent/Pinch Strength Hand Strength Right Insurance Sales Agent (lbs) 120 Comments 132, 118, 110 Left Insurance Sales Agent (lbs) 128 Comments 142, 123, 120 PT-OP-Q Treatments Start: 08/25/22 10:48 Freq: Status: Active Protocol: Document 09/12/22 07:38 SP (Rec: 09/12/22 08:21 SP [id number]) Therapeutic Exercises Sidelying Exercises open book Sidelying Exercise Name added to HEP Side bilateral Resistance AROM Reps/Minutes x8 reps Comments first few tight lateral arm but good fluid mvt with reps Sitting Exercises stretch Sitting Exercise Name 1. scalene 2. UT 3. LS Standing Exercises pec doorway stretch Standing Exercise Name added to HEP Side bilateral Reps/Minutes 30 hold various angles Comments cued head neutral walkinto doorway- good resp axial elongation Side bilateral Equipment Used orange tband Reps/Minutes 3 sec x6 Comments cued elevated elongation, head nod yes neutral, retract ext Standing Exercise Name tricep ext Side bilateral Equipment Used pamunkey band> #4 Blue in clinic ( #6 Corea sample latex free) Reps/Minutes 2x10 Comments cues for scap position and ab fac to wall posture Standing Exercise Name wall roll up w/mod pivot prone Side bilateral Reps/Minutes 3-5 sec hold, x10 Comments cued humeral ER allow scap retract/depress n glides Standing Exercise Name 1. radial 2. median Side right Reps/Minutes 5 ea Other Exercises triangle/reverse triangle, thread needle Other Exercise Name shown for options on road Side bilateral Reps/Minutes 5 reps each 3 SH Comments good feedback response Manual Therapy Treatment Soft Tissue Mobilization med n path Body Location R along entire path to hand Mobilization Type Rolling,Sustained Pressure Intensity/Depth Moderate Body Position Supine Comments w/median n glide Joint Mobilizations ribs Joint R 1st caudal Comments w/ FM FF AC Joint R clavicle distal Direction AP Grade II Comments w/ breath FM sternum Joint w/rib 3-4 Comments AP R FM breath and FF/scaption / PNF (manual) and ed self application PT-OP-T Assessment and Plan Start: 08/25/22 10:48 Freq: Status: Active Protocol: Document 09/12/22 07:38 SP (Rec: 09/12/22 08:21 SP [id number]) Physical Therapy Assessment Goals activities Powder And Primer Canning Leader Goal (LTG) Pt will be able to drive w/o pain LTG Duration 11/25 strength Short Term Goal (STG) Pt will be indep w/HEp STG Duration 10/25 Usp Goal (LTG) Pt will have full triceps strength and R shipping and receiving associate strength that is greater than L as R is his dominant hand in order to allow pt to carry and do all things required of his job w/o inc pain LTG Duration 11/25/22 pain Short Term Goal (STG) Pt will be able to lift and carry as needed w/o inc pain later STG Duration 10/16 Usp Goal (LTG) Pt will be able to rest arm w/ o inc pain. LTG Duration 11/25/22 Assessment Summary Assessment Pt good feedback response to manual, application how carryover self sustained pressure with RUE FM and breath. Good feedback mobility post manual during added open book and standing triangle/ reverse triangle to allow on road and at [place]. Physical Therapy Plan Frequency and Duration Frequency of Treatment 2x/wk 4wk; 1xwk/8wk Duration of treatment (weeks) 12 Plan of Care Start Date 09/02/22 Plan of Care End Date 11/25/22 Therapeutic Interventions Therapeutic Interventions Coordination Training,Home Exercise Program,Joint Mobilizations,Manual Therapy, Neuromuscular Re-education, Patient/Caregiver Education, Self-Care/Home Management,Soft Tissue Mobilization,Taping, Therapeutic Activities, Therapeutic Exercises Modalities Cold Pack/Ice Massage,Electric Stimulation,Hot Packs, Infrared Therapy,Iontophoresis ,Traction- Mechanical, Ultrasound Next Visit Focus/Plan Next Note Type Treatment Note Next Visit Plan short visits d/t insurance restrictions quickreview exercises(wall posture & triceps strength along w/median and radial n glides, axial elongation); add open book, doorway pec stretch, other triceps strength (easy to do on road); Upper tspine mobs and ribs mobs, soft tissue along median & radial n path-focus pec
--- NOTE | 2022-09-17 14:17 | PT.OTN ---
Current Diagnoses Torticollis (09/17/22) Radiculopathy, cervical region (09/17/22) Segmental and somatic dysfunction of head region (09/17/22) Segmental and somatic dysfunction of thoracic region (09/17/22) Abnormal posture (09/17/22) Weakness (09/17/22) Physical Therapy Treatment Note PT-OP-A Visit Information Start: 08/25/22 10:48 Freq: Status: Active Protocol: Document 09/17/22 13:34 [facility] (Rec: 09/17/22 14:16 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 (Rec: 09/02/22 09:04 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 He woke up that thursday and his R arm hurt and he took ibupfrofen and it got worse wher he could barely drive home. It went all the way down his arm into his hand. He has seen Dr. Florez and massage therapy. Massage therapy helped. The weekend before had been bowling and felt it some there. 9 weeks prior he had just started to workout including push ups etc which was new to him. sitting seems to trigger it the most w/ resting arm. He had some exercises from Dr. Florez but doesn't notice if the exercises make any change. It is overall better. He does get muscle spasms a lot where his forehead and B eyelids and R triceps. He leaves in 3 weeks for a tour for 3 months. Gabapentin does help. He started weaning himself off gabepentin which he was doing fine until partway in vacation . 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 Its mostly resting and laying down. He has stopped workouts since. hx of cyst removal along R scap, a couple years ago had calcium build up of R arm and that was painful and had to wait for it to be reabsorbed (around 2018) Treatment Goals Patient/Caregiver Goals be able to drive and do all activities and rest w/o inc pain/tingling PT-OP-C Subjective Start: 08/25/22 10:48 Freq: Status: Active Protocol: Document 09/17/22 13:34 [facility] (Rec: 09/17/22 14:16 [facility] [id number]) OP-PT Subjective Patient Comments Patient Comments Pt has had some points where R pointer finger is less numb but it does come back. Triceps is stronger but does occ get fascilitations to [place], No gabapentin for a week PT-OP-F Manual Assessment Start: 08/25/22 10:48 Freq: Status: Active Protocol: Document 09/02/22 08:18 [facility] (Rec: 09/02/22 09:04 [facility] [id number]) Manual Assessments Soft Tissue Assessment Soft Tissue Mobility Assessment R med scap border, R UT, LS, rhombooids, biceps, pec, scalenes, SCM Joint Mobility Assessment Joint Mobility Assessment R 1st rib elevated PT-OP-J Posture/Palpation/Skin Start: 08/25/22 10:48 Freq: Status: Active Protocol: Document 09/02/22 08:18 [facility] (Rec: 09/02/22 09:04 [facility] [id number]) Posture Evaluation Torey Postural Classification System Elbow Flexion Test 2 Comments Posture Comments R scap more fwd angled, R shoulder elevated PT-OP-K Range of Motion Start: 08/25/22 10:48 Freq: Status: Active Protocol: Document 09/02/22 08:18 [facility] (Rec: 09/02/22 09:04 [facility] [id number]) Cervical Spine Range of Motion Cervical Spine Active Degrees Flexion 54 Extension 55 Rotation Left 72 Rotation Right 68 Lateral Flexion Left 45 Lateral Flexion Right 26 Comments WNL BuE ROM -mild pain w/flex; pain into arm w/R SB PT-OP-L Special Tests Start: 08/25/22 10:48 Freq: Status: Active Protocol: Document 09/02/22 08:18 [facility] (Rec: 09/02/22 09:04 [facility] [id number]) Special Tests Cervical Spine Special Tests Traction Test Results relief Vertebral Artery Test Results neg Spurling's Test Test Results neg Neural Special Tests- Upper Body Median Nerve Tension Test Results R positive Radial Nerve Tension Test Results R positive Ulnar Nerve Tension Test Results neg PT-OP-M Strength Start: 08/25/22 10:48 Freq: Status: Active Protocol: Document 09/02/22 08:18 [facility] (Rec: 09/02/22 09:04 [facility] [id number]) Shoulder Strength Shoulder Manual Muscle Testing Right Flexion 5 Normal Extension 5 Normal Abduction (C5) 5 Normal External Rotation 5 Normal Internal Rotation 5 Normal Left Flexion 5 Normal Extension 5 Normal Abduction (C5) 5 Normal External Rotation 5 Normal Internal Rotation 5 Normal Elbow/Forearm Strength Elbow and Forearm Manual Muscle Testing Right Flexion (C6) 4+ Good+ Extension (C7) 3+ Fair+ Pronation 5 Normal Supination 5 Normal Left Flexion (C6) 5 Normal Extension (C7) 5 Normal Pronation 5 Normal Supination 5 Normal Wrist Strength Wrist Manual Muscle Testing Right Flexion (C7) 5 Normal Extension (C6) 5 Normal Left Flexion (C7) 5 Normal Extension (C6) 5 Normal Hand Launch Engineer/Pinch Strength Hand Strength Right Launch Engineer (lbs) 120 Comments 132, 118, 110 Left Launch Engineer (lbs) 128 Comments 142, 123, 120 PT-OP-Q Treatments Start: 08/25/22 10:48 Freq: Status: Active Protocol: Document 09/17/22 13:34 [facility] (Rec: 09/17/22 14:16 [facility] [id number]) Therapeutic Exercises Sidelying Exercises open book Sidelying Exercise Name added to HEP Side bilateral Resistance AROM Reps/Minutes 10 Sitting Exercises stretch Sitting Exercise Name 1. scalene 2. UT 3. LS Side right Reps/Minutes 30 sec ea Standing Exercises pec doorway stretch Standing Exercise Name added to HEP Side right Reps/Minutes review of various angles Other Exercises triangle/reverse triangle, thread needle Side bilateral Reps/Minutes 1 min review Comments good feedback response Manual Therapy Treatment Soft Tissue Mobilization med n path Body Location R along entire path to hand Mobilization Type Rolling,Sustained Pressure Intensity/Depth Moderate Body Position Supine Comments w/median n glide Joint Mobilizations GH Joint R inf FM AC Joint R clavicle ant FM s/l and seated PT-OP-T Assessment and Plan Start: 08/25/22 10:48 Freq: Status: Active Protocol: Document 09/17/22 13:34 [facility] (Rec: 09/17/22 14:16 [facility] [id number]) Physical Therapy Assessment Goals activities Special Events Director Goal (LTG) Pt will be able to drive w/o pain 5/3-mild pain a week and a half ago LTG Duration 11/25 strength Short Term Goal (STG) Pt will be indep w/HEp STG Duration achieved advancinga s sneeded Skilled Nursing Goal (LTG) Pt will have full triceps strength and R die cleaner strength that is greater than L as R is his dominant hand in order to allow pt to carry and do all things required of his job w/o inc pain LTG Duration 11/25/22 pain Short Term Goal (STG) Pt will be able to lift and carry as needed w/o inc pain later 09/17-has done small lifting but has not had to carry long distances STG Duration 10/16 Skilled Nursing Goal (LTG) Pt will be able to rest arm w/ o inc pain. 5/ mild w/driving LTG Duration 12/10/22 Assessment Summary Assessment Pt did well with new exercises given to him. Some cues w/ seated neck stretches and open book needed only. Overall pt making excellent progress but will cont to require PT to work on RUE symptoms. Physical Therapy Plan Frequency and Duration Frequency of Treatment 1x/Week Duration of treatment (weeks) 12 Plan of Care Start Date 09/17/22 Plan of Care End Date 12/10/22 Therapeutic Interventions Therapeutic Interventions Coordination Training,Home Exercise Program,Joint Mobilizations,Manual Therapy, Neuromuscular Re-education, Patient/Caregiver Education, Self-Care/Home Management,Soft Tissue Mobilization,Taping, Therapeutic Activities, Therapeutic Exercises Modalities Cold Pack/Ice Massage,Electric Stimulation,Hot Packs, Infrared Therapy,Iontophoresis ,Traction- Mechanical, Ultrasound Next Visit Focus/Plan Next Note Type Treatment Note Next Visit Plan short visits d/t insurance restrictions quickreview exercises(wall posture & triceps strength along w/median and radial n glides, axial elongation); add open book, doorway pec stretch, other triceps strength (easy to do on road); Upper tspine mobs and ribs mobs, soft tissue along median & radial n path-focus pec
--- NOTE | 2022-09-17 14:17 | PT.OPPOC ---
Physical, Occupational & Speech Therapy At [facility] Current Diagnoses Torticollis (09/17/22) Radiculopathy, cervical region (09/17/22) Segmental and somatic dysfunction of head region (09/17/22) Segmental and somatic dysfunction of thoracic region (09/17/22) Abnormal posture (09/17/22) Weakness (09/17/22) Visit Care Team Role Provider Type Scott Flroez DO Attending Provider Physician Family Provider Primary Care Provider Referring Provider Specialty: Family Practice Address: [address] [place] [address], [facility] Email: Plan Of Care PT-OP-T Assessment and Plan Start: 08/25/22 10:48 Freq: Status: Active Protocol: Document 09/17/22 13:34 [facility] (Rec: 09/17/22 14:16 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 5/3 mild w/driving LTG Duration 12/10/22 Assessment Summary Assessment Pt did well with new exercises given to him. Some cues w/ seated neck stretches and open book needed only. Overall pt making excellent progress but will cont to require PT to work on RUE symptoms. Physical Therapy Plan Frequency and Duration Frequency of Treatment 1x/Week Duration of treatment (weeks) 12 Plan of Care Start Date 09/17/22 Plan of Care End Date 12/10/22 Therapeutic Interventions Therapeutic Interventions Coordination Training,Home Exercise Program,Joint Mobilizations,Manual Therapy, Neuromuscular Re-education, Patient/Caregiver Education, Self-Care/Home Management,Soft Tissue Mobilization,Taping, Therapeutic Activities, Therapeutic Exercises Modalities Cold Pack/Ice Massage,Electric Stimulation,Hot Packs, Infrared Therapy,Iontophoresis ,Traction- Mechanical, Ultrasound Next Visit Focus/Plan Next Note Type Treatment Note Next Visit Plan short visits d/t insurance restrictions quickreview exercises(wall posture & triceps strength along w/median and radial n glides, axial elongation); add open book, doorway pec stretch, other triceps strength (easy to do on road); Upper tspine mobs and ribs mobs, soft tissue along median & radial n path-focus pec Plan of Care Dates Plan of Care Start Date 09/17/22 Plan of Care End Date 12/10/22 Electronically Signed by: Gala Brown, PT 09/17/22 2225 If you are in agreement with this Plan of Care, please return a signed and dated copy. I have reviewed this Plan of Care and certify that the skilled therapy services above are required to meet the patient?s needs. Physician Signature Date Printed Name and Credentials Clinical Instructor Signature Printed Name and Credentials
--- NOTE | 2022-09-19 08:08 | PT.OTN ---
Current Diagnoses Torticollis (09/19/22) Radiculopathy, cervical region (09/19/22) Segmental and somatic dysfunction of head region (09/19/22) Segmental and somatic dysfunction of thoracic region (09/19/22) Abnormal posture (09/19/22) Weakness (09/19/22) Physical Therapy Treatment Note PT-OP-A Visit Information Start: 08/25/22 10:48 Freq: Status: Active Protocol: Document 09/19/22 07:31 SP (Rec: 09/19/22 08:21 SP [id number]) Out-Patient Physical Therapy Visit Information Visit Information Visit Type Treatment Note Visit Note short visits d/t insurance restrictions, 2 units Visit Start Time 07:31 Visit Stop Time 08:08 Total Visit Minutes 37 Visit Number 6 Number of PEER TUTOR 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 He woke up that thursday and his R arm hurt and he took ibupfrofen and it got worse wher he could barely drive home. It went all the way down his arm into his hand. He has seen Dr. Florez and massage therapy. Massage therapy helped. The weekend before had been bowling and felt it some there. 9 weeks prior he had just started to workout including push ups etc which was new to him. sitting seems to trigger it the most w/ resting arm. He had some exercises from Dr. Florez but doesn't notice if the exercises make any change. It is overall better. He does get muscle spasms a lot where his forehead and B eyelids and R triceps. He leaves in 3 weeks for a tour for 3 months. Gabapentin does help. He started weaning himself off gabepentin which he was doing fine until partway in vacation . 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 Its mostly resting and laying down. He has stopped workouts since. hx of cyst removal along R scap, a couple years ago had calcium build up of R arm and that was painful and had to wait for it to be reabsorbed (around 2018) Treatment Goals Patient/Caregiver Goals be able to drive and do all activities and rest w/o inc pain/tingling PT-OP-C Subjective Start: 08/25/22 10:48 Freq: Status: Active Protocol: Document 09/19/22 07:31 SP (Rec: 09/19/22 08:21 SP [id number]) OP-PT Subjective Patient Comments Patient Comments Pt reports still getting numbness into R distal 2nd MCP . PT-OP-F Manual Assessment Start: 08/25/22 10:48 Freq: Status: Active Protocol: Document 09/02/22 08:18 [facility] (Rec: 09/02/22 09:04 [facility] [id number]) Manual Assessments Soft Tissue Assessment Soft Tissue Mobility Assessment R med scap border, R UT, LS, rhombooids, biceps, pec, scalenes, SCM Joint Mobility Assessment Joint Mobility Assessment R 1st rib elevated PT-OP-J Posture/Palpation/Skin Start: 08/25/22 10:48 Freq: Status: Active Protocol: Document 09/02/22 08:18 [facility] (Rec: 09/02/22 09:04 [facility] [id number]) Posture Evaluation Torey Postural Classification System Elbow Flexion Test 2 Comments Posture Comments R scap more fwd angled, R shoulder elevated PT-OP-K Range of Motion Start: 08/25/22 10:48 Freq: Status: Active Protocol: Document 09/02/22 08:18 [facility] (Rec: 09/02/22 09:04 [facility] [id number]) Cervical Spine Range of Motion Cervical Spine Active Degrees Flexion 54 Extension 55 Rotation Left 72 Rotation Right 68 Lateral Flexion Left 45 Lateral Flexion Right 26 Comments WNL BuE ROM -mild pain w/flex; pain into arm w/R SB PT-OP-L Special Tests Start: 08/25/22 10:48 Freq: Status: Active Protocol: Document 09/02/22 08:18 [facility] (Rec: 09/02/22 09:04 [facility] [id number]) Special Tests Cervical Spine Special Tests Traction Test Results relief Vertebral Artery Test Results neg Spurling's Test Test Results neg Neural Special Tests- Upper Body Median Nerve Tension Test Results R positive Radial Nerve Tension Test Results R positive Ulnar Nerve Tension Test Results neg PT-OP-M Strength Start: 08/25/22 10:48 Freq: Status: Active Protocol: Document 09/02/22 08:18 [facility] (Rec: 09/02/22 09:04 [facility] [id number]) Shoulder Strength Shoulder Manual Muscle Testing Right Flexion 5 Normal Extension 5 Normal Abduction (C5) 5 Normal External Rotation 5 Normal Internal Rotation 5 Normal Left Flexion 5 Normal Extension 5 Normal Abduction (C5) 5 Normal External Rotation 5 Normal Internal Rotation 5 Normal Elbow/Forearm Strength Elbow and Forearm Manual Muscle Testing Right Flexion (C6) 4+ Good+ Extension (C7) 3+ Fair+ Pronation 5 Normal Supination 5 Normal Left Flexion (C6) 5 Normal Extension (C7) 5 Normal Pronation 5 Normal Supination 5 Normal Wrist Strength Wrist Manual Muscle Testing Right Flexion (C7) 5 Normal Extension (C6) 5 Normal Left Flexion (C7) 5 Normal Extension (C6) 5 Normal Hand Technical Aide/Pinch Strength Hand Strength Right Technical Aide (lbs) 120 Comments 132, 118, 110 Left Technical Aide (lbs) 128 Comments 142, 123, 120 PT-OP-Q Treatments Start: 08/25/22 10:48 Freq: Status: Active Protocol: Document 09/19/22 07:31 SP (Rec: 09/19/22 08:21 SP [id number]) Therapeutic Exercises Supine Exercises foam roller Supine Exercise Name TS ext, rolling, ext w/ FM FF Reps/Minutes 3 min Comments good feedback response Sidelying Exercises open book Sidelying Exercise Name reviewed HEP Side bilateral Resistance AROM Reps/Minutes 5 reps w/ 3 breath hold end feel Comments good feedback response Sitting Exercises stretch Sitting Exercise Name 1. scalene 2. UT 3. LS Side right Reps/Minutes 30 sec ea Standing Exercises n glides Standing Exercise Name 1. radial 2. median Side right Reps/Minutes 5 ea Comments good tension feel moving in/ out ROM Other Exercises triangle/reverse triangle, thread needle Side bilateral Reps/Minutes 1 min review Comments good feedback response Manual Therapy Treatment Soft Tissue Mobilization med n path Body Location R along entire path to hand: SCM/scalene, PMinor, intercost , bicep, PT, + Mobilization Type Rolling,Sustained Pressure, Other Intensity/Depth Moderate Body Position Supine Comments manual and ed self application MWM w/median n glide Joint Mobilizations ribs Joint R 1st caudal Comments w/ FM FF AC Joint R clavicle inferior w/ FM FF Self-Care/Home Management Treatment Education Patient Education Body Mechanics,Posture Other Education Ed self MWM sustained pressure various muscles with wrist/ arm MWM; stretching during drive FL, pec, sink, lat, hip flexor, triangle/reverse triangle, nerve glides stretch open anterior chain. Bring foam roller for TS ext, open anterior chain. Good feedback response. 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 No significant decrease in numbness in R 2nd distal MCP by end tx. Physical Therapy Plan Frequency and Duration Frequency of Treatment 1x/Week Duration of treatment (weeks) 12 Plan of Care Start Date 09/17/22 Plan of Care End Date 12/10/22 Therapeutic Interventions Therapeutic Interventions Coordination Training,Home Exercise Program,Joint Mobilizations,Manual Therapy, Neuromuscular Re-education, Patient/Caregiver Education, Self-Care/Home Management,Soft Tissue Mobilization,Taping, Therapeutic Activities, Therapeutic Exercises Modalities Cold Pack/Ice Massage,Electric Stimulation,Hot Packs, Infrared Therapy,Iontophoresis ,Traction- Mechanical, Ultrasound Next Visit Focus/Plan Next Note Type Treatment Note Next Visit Plan short visits d/t insurance restrictions quickreview exercises(wall posture & triceps strength along w/median and radial n glides, axial elongation); add open book, doorway pec stretch, other triceps strength (easy to do on road); Upper tspine mobs and ribs mobs, soft tissue along median & radial n path-focus pec
--- NOTE | 2022-10-23 17:42 | PT-OP ANOTE ---
Pt called re: no show but did not answer and phone did not go to , so unable to leave message.
--- NOTE | 2022-11-27 08:28 | PT-OP ANOTE ---
Pt was confused about the scheduling and thought he had to just schedule for his insurance to not lapse. He was educated on need to call to cancel appts. Pt asked to cancel all appts except for December 11 as he returns December 10.
--- NOTE | 2022-12-11 11:42 | PT.OTN ---
Current Diagnoses Torticollis (12/11/22) Radiculopathy, cervical region (12/11/22) Segmental and somatic dysfunction of head region (12/11/22) Segmental and somatic dysfunction of thoracic region (12/11/22) Abnormal posture (12/11/22) Weakness (12/11/22) Physical Therapy Treatment Note PT-OP-A Visit Information Start: 08/25/22 10:48 Freq: Status: Active Protocol: Document 12/11/22 07:31 [facility] (Rec: 12/11/22 11:42 [facility] [id number]) Out-Patient Physical Therapy Visit Information Visit Information Visit Type Discharge Summary Visit Note short visits d/t insurance restrictions, 2 units Visit Start Time 07:31 Visit Stop Time 08:06 Total Visit Minutes 35 Visit Number 7 Number of ADVANCED PRACTICE RN Visits 0 PT-OP-B Current Condition Start: 08/25/22 10:48 Freq: Status: Active Protocol: Document 09/02/22 08:18 [facility] (Rec: 09/02/22 09:04 [facility] [id number]) Current Condition History of Current Condition Onset Date 2 months ago Current Complaints R arm pain History of Current Condition 2 months ago, 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 He woke up that thursday and his R arm hurt and he took ibupfrofen and it got worse wher he could barely drive home. It went all the way down his arm into his hand. He has seen Dr. Florez and massage therapy. Massage therapy helped. The weekend before had been bowling and felt it some there. 9 weeks prior he had just started to workout including push ups etc which was new to him. sitting seems to trigger it the most w/ resting arm. He had some exercises from Dr. Florez but doesn't notice if the exercises make any change. It is overall better. He does get muscle spasms a lot where his forehead and B eyelids and R triceps. He leaves in 3 weeks for a tour for 3 months. Gabapentin does help. He started weaning himself off gabepentin which he was doing fine until partway in vacation . 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 Its mostly resting and laying down. He has stopped workouts since. hx of cyst removal along R scap, a couple years ago had calcium build up of R arm and that was painful and had to wait for it to be reabsorbed (around 2018) Treatment Goals Patient/Caregiver Goals be able to drive and do all activities and rest w/o inc pain/tingling PT-OP-C Subjective Start: 08/25/22 10:48 Freq: Status: Active Protocol: Document 12/11/22 07:31 [facility] (Rec: 12/11/22 11:42 [facility] [id number]) OP-PT Subjective Patient Comments Patient Comments Pt reports still getting numbness into R distal 2nd MCP medially but that is the only symptom. no issues on tour. compliance w/HEP PT-OP-F Manual Assessment Start: 08/25/22 10:48 Freq: Status: Active Protocol: Document 09/02/22 08:18 [facility] (Rec: 09/02/22 09:04 [facility] [id number]) Manual Assessments Soft Tissue Assessment Soft Tissue Mobility Assessment R med scap border, R UT, LS, rhombooids, biceps, pec, scalenes, SCM Joint Mobility Assessment Joint Mobility Assessment R 1st rib elevated PT-OP-J Posture/Palpation/Skin Start: 08/25/22 10:48 Freq: Status: Active Protocol: Document 09/02/22 08:18 [facility] (Rec: 09/02/22 09:04 [facility] [id number]) Posture Evaluation Torey Postural Classification System Elbow Flexion Test 2 Comments Posture Comments R scap more fwd angled, R shoulder elevated PT-OP-K Range of Motion Start: 08/25/22 10:48 Freq: Status: Active Protocol: Document 09/02/22 08:18 [facility] (Rec: 09/02/22 09:04 [facility] [id number]) Cervical Spine Range of Motion Cervical Spine Active Degrees Flexion 54 Extension 55 Rotation Left 72 Rotation Right 68 Lateral Flexion Left 45 Lateral Flexion Right 26 Comments WNL BuE ROM -mild pain w/flex; pain into arm w/R SB PT-OP-L Special Tests Start: 08/25/22 10:48 Freq: Status: Active Protocol: Document 12/11/22 07:31 [facility] (Rec: 12/11/22 11:42 [facility] [id number]) Special Tests Neural Special Tests- Upper Body tinnels at wrist Test Results neg R phalens Test Results neg B Median Nerve Tension Test Results neg Radial Nerve Tension Test Results neg Ulnar Nerve Tension Test Results neg PT-OP-M Strength Start: 08/25/22 10:48 Freq: Status: Active Protocol: Document 12/11/22 07:31 [facility] (Rec: 12/11/22 11:42 [facility] [id number]) Shoulder Strength Shoulder Manual Muscle Testing Right Flexion 5 Normal Extension 5 Normal Abduction (C5) 5 Normal External Rotation 5 Normal Internal Rotation 5 Normal Left Flexion 5 Normal Extension 5 Normal Abduction (C5) 5 Normal External Rotation 5 Normal Internal Rotation 5 Normal Elbow/Forearm Strength Elbow and Forearm Manual Muscle Testing Right Flexion (C6) 5 Normal Extension (C7) 5 Normal Pronation 5 Normal Supination 5 Normal Left Flexion (C6) 5 Normal Extension (C7) 5 Normal Pronation 5 Normal Supination 5 Normal Wrist Strength Wrist Manual Muscle Testing Right Flexion (C7) 5 Normal Extension (C6) 5 Normal Left Flexion (C7) 5 Normal Extension (C6) 5 Normal 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 wrist flexors 2. 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 Computer Goal (LTG) Pt will be able to drive w/o pain 5/3-mild pain a week and a half ago LTG Duration achieved strength Short Term Goal (STG) Pt will be indep w/HEp STG Duration achieved advancinga s sneeded Nursing Home Goal (LTG) Pt will have full triceps strength and 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 09/17 mild w/driving LTG Duration achieved Assessment Summary Assessment Pt had improved wrist ext and finger ext after manual and work was done along n distribution for 2nd finger. He is much stronger throughout UE and has no pain. D/t no functional deficits, pt DC at this time. Physical Therapy Plan Frequency and Duration Frequency of Treatment 1x Plan of Care Start Date 12/11/22 Plan of Care End Date 12/11/22 Therapeutic Interventions Therapeutic Interventions Coordination Training,Home Exercise Program,Joint Mobilizations,Manual Therapy, Neuromuscular Re-education, Patient/Caregiver Education, Self-Care/Home Management,Soft Tissue Mobilization,Taping, Therapeutic Activities, Therapeutic Exercises Discharge Physical Therapy Discharge Reasons Goals Met
--- NOTE | 2022-12-11 11:42 | PT.OPPOC ---
Physical, Occupational & Speech Therapy At [facility] Current Diagnoses Torticollis (12/11/22) Radiculopathy, cervical region (12/11/22) Segmental and somatic dysfunction of head region (12/11/22) Segmental and somatic dysfunction of thoracic region (12/11/22) Abnormal posture (12/11/22) Weakness (12/11/22) Visit Care Team Role Provider Type Scott Florez DO Attending Provider Physician Family Provider Primary Care Provider Referring Provider Specialty: Family Practice Address: [address] [place] [address], [facility] Email: Plan Of Care PT-OP-T Assessment and Plan Start: 08/25/22 10:48 Freq: Status: Active Protocol: Document 12/11/22 07:31 [facility] (Rec: 12/11/22 11:42 [facility] [id number]) Physical Therapy Assessment 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 (LTG) Pt will be able to drive w/o pain 5/3-mild pain a week and a half ago LTG Duration achieved strength Short Term Goal (STG) Pt will be indep w/HEp STG Duration achieved advancinga s sneeded Care Home Goal (LTG) Pt will have full triceps strength and 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 5/3 mild w/driving LTG Duration achieved Assessment Summary Assessment Pt had improved wrist ext and finger ext after manual and work was done along n distribution for 2nd finger. He is much stronger throughout UE and has no pain. D/t no functional deficits, pt DC at this time. Physical Therapy Plan Frequency and Duration Frequency of Treatment 1x Plan of Care Start Date 12/11/22 Plan of Care End Date 12/11/22 Therapeutic Interventions Therapeutic Interventions Coordination Training,Home Exercise Program,Joint Mobilizations,Manual Therapy, Neuromuscular Re-education, Patient/Caregiver Education, Self-Care/Home Management,Soft Tissue Mobilization,Taping, Therapeutic Activities, Therapeutic Exercises Discharge Physical Therapy Discharge Reasons Goals Met Plan of Care Dates Plan of Care Start Date 12/11/22 Plan of Care End Date 12/11/22 Electronically Signed by: Gala Brown, PT 12/11/22 7139 If you are in agreement with this Plan of Care, please return a signed and dated copy. I have reviewed this Plan of Care and certify that the skilled therapy services above are required to meet the patient?s needs. Physician Signature Date Printed Name and Credentials Clinical Instructor Signature Printed Name and Credentials
== END 2023-02-02 16:01 | disposition home or self-care (01) ==
LOC: PHYS 07:30
PROVIDERS: Family Provider Family Medicine; PCP Family Medicine; Referring Provider Family Medicine; Visit Provider Family Medicine
DX: M99.02 Segmental and somatic dysfunction of thoracic region (principal); M54.12 Radiculopathy, cervical region; M43.6 Torticollis; M99.00 Segmental and somatic dysfunction of head region; R53.1 Weakness; R29.3 Abnormal posture
CPT/HCPCS: 97110; 97140; 97162

== ENCOUNTER → 2023-04-28 11:24 | Outpatient (CLI) | payer OTHER, MEDICAID, SELFPAY ==
[2023-04-28 11:44] LABS: Add Manual Diff / Slide Review NO; Basophils Absolute Auto 0 /uL (0-100); Basophils Percent Auto 0.8 % (0-2); Eosinophils Absolute Auto 200 /uL (0-450); Eosinophils Percent Auto 4.1 % (2-4); Hematocrit 47.9 % (41-53); Hemoglobin 16.6 g/dL (13.5-17.5); Lymphocytes Absolute Auto 1300 /uL (1100-4500); Lymphocytes Percent Auto 24.6 % (25-40); Mean Corpuscular HGB Conc 34.7 % (30-36); Mean Corpuscular Hemoglobin 30.4 PG (26-34); Mean Corpuscular Volume 87.7 fL (80-100); Monocytes Absolute Auto 500 /uL (0-900); Monocytes Percent Auto 8.6 % (3-14); Neutrophils Absolute Auto 3400 /uL (1500-7000); Neutrophils Percent Auto 61.9 % (50-75); Platelet Count 203 X10^3/uL (150-400); Red Blood Cell Count 5.46 X10^6/uL (4.5-5.9); Red Cell Distribution Width 13.2 % (11.6-14.8); White Blood Cell Count 5.5 X10^3/uL (4.5-11.0)
[2023-04-28 12:05] LABS: Alanine Aminotransferase 36 IU/L (<50); Albumin 4.5 g/dL (3.5-5.0); Albumin Globulin Ratio 1.5 (1.0-2.8); Alkaline Phosphatase 53 U/L (38-126); Aspartate Aminotransferase 26 IU/L (17-59); Bilirubin Total 0.8 mg/dL (0.2-1.3); Blood Urea Nitrogen 19 mg/dL (9-20); Calcium 9.7 mg/dL (8.4-10.2); Carbon Dioxide 28 mmol/L (22-32); Chloride 101 mmol/L (98-107); Cholesterol 237 mg/dL (140-199); Estimated Glomerular Filt Rate > 60 mL/min (>60); Glucose 100 mg/dL (70-100); HDL Cholesterol 41 mg/dL (40-60); HEMOLYSIS < 15 (0-50); LDL Cholesterol Calculated 151 mg/dL (<100); Potassium 4.2 mmol/L (3.4-5.1); Sodium 137 mmol/L (137-145); Total Protein 7.5 g/dL (6.3-8.2); Triglycerides 226 mg/dL (35-150); Uric Acid 6.7 mg/dL (3.5-8.5)
[2023-04-28 14:05] LABS: Microalbumin Urine Random < 0.6 mg/dL (0-1.6)
[2023-04-28 14:06] LABS: Creatinine Urine Random 223.2 mg/dL
== END ==
PROVIDERS: Family Provider Family Medicine; PCP Family Medicine; Referring Provider Physician Assistant; Visit Provider Physician Assistant
DX: R79.89 Other specified abnormal findings of blood chemistry (principal); E79.0 Hyperuricemia without signs of inflammatory arthritis and tophaceous disease; E78.2 Mixed hyperlipidemia; E78.1 Pure hyperglyceridemia
CPT/HCPCS: 36415; 80053; 80061; 82043; 82570; 84550; 85025

== ENCOUNTER → 2023-05-07 10:26 | Outpatient (CLI) | payer OTHER, MEDICAID, SELFPAY ==
[2023-05-07 12:23] LABS: Add Manual Diff / Slide Review NO; Basophils Absolute Auto 0 /uL (0-100); Eosinophils Absolute Auto 200 /uL (0-450); Eosinophils Percent Auto 3.2 % (2-4); Hematocrit 48.4 % (41-53); Hemoglobin 16.7 g/dL (13.5-17.5); Lymphocytes Absolute Auto 1200 /uL (1100-4500); Lymphocytes Percent Auto 25.4 % (25-40); Mean Corpuscular HGB Conc 34.5 % (30-36); Mean Corpuscular Hemoglobin 30.1 PG (26-34); Mean Corpuscular Volume 87.1 fL (80-100); Monocytes Absolute Auto 400 /uL (0-900); Monocytes Percent Auto 8.4 % (3-14); Neutrophils Absolute Auto 2900 /uL (1500-7000); Platelet Count 198 X10^3/uL (150-400); Red Blood Cell Count 5.55 X10^6/uL (4.5-5.9); White Blood Cell Count 4.7 X10^3/uL (4.5-11.0)
[2023-05-07 12:37] LABS: HEMOLYSIS < 15 (0-50); Iron 90 ug/dL (49-181)
[2023-05-07 12:51] LABS: Percent Iron Saturation 25 % (20-50); Total Iron Binding Capacity 356 ug/dL (261-462); Transferrin 331 mg/dL (206-381)
[2023-05-07 13:17] LABS: Ferritin 45 ng/mL (18-464)
== END ==
PROVIDERS: Family Provider Family Medicine; PCP Family Medicine; Referring Provider Family Medicine; Visit Provider Family Medicine
DX: E78.2 Mixed hyperlipidemia (principal); G25.81 Restless legs syndrome
CPT/HCPCS: 36415; 82728; 83540; 83550; 85025

== ENCOUNTER → 2023-06-15 09:38 | Outpatient (CLI) | payer OTHER, MEDICAID, SELFPAY | LOC: CAR 09:38 | PROVIDERS: Family Provider Family Medicine; PCP Family Medicine; Referring Provider Family Medicine; Visit Provider Family Medicine | DX: R00.2 Palpitations (principal) | CPT/HCPCS: 93246 ==

== ENCOUNTER 2024-03-22 07:43 | Day surgery (SDC) | payer OTHER, MEDICAID, SELFPAY ==
[2024-03-22 08:04] VITALS: BP 138/83; PULSE 88; RESP 18; TEMP 36.4; O2SAT 99
--- NOTE | 2024-03-22 08:38 | PM.HP.1 ---
History of Present Illness History of Present Illness Date Patient Seen: 03/22/24 Time Patient Seen: 08:38 Chief complaint: Screening Colonoscopy Narrative: 49-year-old man here for 1st time screening colonoscopy. No family history of colon cancer. No abdominal concerns today. [facility] Medical History (Updated 07/27/23 @ 16:14 by Scott Florez DO) Palpitations Cranial somatic dysfunction Thoracic region somatic dysfunction Cervical somatic dysfunction Finger numbness Neck stiffness Encounter for vasectomy Physical exam, annual CKD (chronic kidney disease) stage 3, GFR 30-59 ml/min Hyperlipidemia, mixed BMI 29.0-29.9,adult Food sticks on swallowing Tendonitis Surgical History Anesthesia H/O removal of cyst (~2012) Family History Mother Brain tumor Cancer Father Broken hip Grandfather Cancer Social History Smoking Status: Never smoker alcohol intake: current substance use type: does not use Meds Home Medications and Allergies Allergies Allergy/AdvReac Type Severity Reaction Status Date / Time No Known Drug Allergies Allergy Verified 03/22/24 07:57 Exam Vital Signs (past 8 hours): - 03/22/24 08:04 Temperature 97.6 F Pulse Rate 88 Respiratory Rate 18 Blood Pressure 138/83 Pulse Oximetry 99 Oxygen Delivery Method Room Air Oxygen Delivery Method Room Air Narrative Exam Narrative: General adult man alert oriented no acute distress Chest nonlabored respiration Extremities warm well perfused Assessment & Plan Assessment & Plan narrative: The patient requires colorectal screening and colonoscopy is recommended. Technical details were discussed. Risks, benefits, alternatives explained. Risks including but not limited to myocardial infarction, aspiration, bleeding, pain, missed lesion, incomplete examination, need for further radiographic studies, intestinal injury, and need for major abdominal surgery were discussed. All questions were answered to their satisfaction, and they are in agreement with this plan. Time-Based Coding :: [TOTAL MINUTES] spent with patient and on the chart (including review of chart, obtaining history, exam, reviewing outside data, placing orders, documenting exam and treatment plan, and counseling patient) on [DATE].
--- NOTE | 2024-03-22 08:45 | P.OP.COLON_ITS ---
Operative Date/Time/Diagnoses Date of procedure: 03/22/24 Time of procedure: 08:45 Pre-op diagnosis: Colorectal screening Procedure & Clinicians Study performed: Screening colonoscopy Same procedure as scheduled: Yes Indications: Screening Surgeon: Jarrell Lang Procedure Notes Procedure in detail: The history and physical was performed/updated and the patient is ASA class is 2. The procedure was discussed in detail with the patient. Potential risks complications including infection, bleeding, missed diagnosis, perforation, need for surgery, and were explained. Their questions were answered and informed consent was obtained. Patient was brought to the procedure room and placed standard monitoring equipment. The patient's vital signs were monitored continuously throughout the entire procedure. Prior to starting time-out was performed. The patient was placed in the left lateral recumbent position. Procedural sedation was administered by anesthesia. Examination began with a thorough inspection of the perianal area there was no evidence of fissures, fistulae, external hemorrhoids or cutaneous malignancy. The colonoscopy scope was then placed into the anal canal and was advanced to the cecum, which was identified by the ileocecal valve, the appendiceal orifice and the confluence of the taenia. The scope was then slowly withdrawn examining colon thoroughly in all directions, irrigating it of any residual stool. The scope was retroflexed within the rectum The patient tolerated the procedure well. They will be discharged once criteria are met. The prep was of fair quality. The withdrawl time was 10 minutes. FINDINGS * Insulin are unremarkable Specimen(s): none sent Impression: Normal colonoscopy Post-procedure Recommendations: Colonoscopy in 10 years Disposition: same day surgery
[2024-03-22 09:14] VITALS: BP 111/83; PULSE 76; RESP 13; TEMP 37.2; O2SAT 94
[2024-03-22 09:18] VITALS: BP 102/72; PULSE 67; RESP 14; TEMP 37.1; O2SAT 97
[2024-03-22 09:26] VITALS: BP 105/70; PULSE 65; RESP 15; TEMP 37.1; O2SAT 99
== END 2024-03-22 09:32 | disposition home or self-care (01) ==
PROVIDERS: Family Provider Family Medicine; PCP Family Medicine; Referring Provider Surgery; Visit Provider Surgery
PROC: 0DJD8ZZ Inspection of Lower Intestinal Tract, Via Natural or Artificial Opening Endoscopic (ICD-10-PCS; CPT 45378; principal; 2024-03-22 08:45)
DX: Z12.11 Encounter for screening for malignant neoplasm of colon (principal)
CPT/HCPCS: 45378; J2704